=== PATIENT | male | born 2000 | race Caucasian/White ===

== ENCOUNTER 2019-05-11 19:06 | Inpatient (IN) | payer BC, SELFPAY ==
--- NOTE | ~2019-05-11 | CT_ITS ---
EXAMINATION: CT brain wo con DATE: 05/11/2019 20:15 INDICATION: Seizures TECHNIQUE: Computed tomography (CT) of the head was performed without intravenous contrast. The dose- length product was 605.33 mGy-cm. The mA was adjusted according to patient size. Iterative reconstruc tion technique was employed. COMPARISON: None FINDINGS: There are geographic areas of hypodensity of the frontal lobes bilaterally which may be pos ttraumatic or infarction. Mild generalized atrophy. Chronic areas of hypodensity of the posterior par ietal lobes and the left occipital lobe. No ventriculomegaly or midline shift. There is mucosal thick ening of the right frontal and ethmoid sinuses. Mastoids are pneumatized. No depressed skull fracture s. No acute intracranial hemorrhage, infarction, mass or mass effect. IMPRESSION: 1. Geographic areas of hypodensity involving the frontal lobes, posterior parietal lobes and left occ ipital lobe which may reflect posttraumatic change or areas of chronic infarction. Reviewed, dictated and finalized at location A. OR ONLINE MARKETING MANAGER IMPRESSION: 1. Geographic areas of hypodensity involving the frontal lobes, posterior parie marleni lobes and left occipital lobe which may reflect posttraumatic change or are as of chronic infarction.
--- NOTE | ~2019-05-11 | XR_ITS ---
XR chest 2V DATE: 05/12/2019 08:19 INDICATION: Leukocytosis. Seizure. TECHNIQUE: AP and lateral views in wheelchair COMPARISON: None FINDINGS: Normal heart size. No hilar or mediastinal enlargement. No pulmonary infiltrate or consolid ation, pleural effusion or pulmonary vascular congestion or pneumothorax. IMPRESSION: No active cardiopulmonary disease Reviewed, dictated and finalized at location B. CARE AIDE TEACHER
[2019-05-11 19:07] VITALS: BP 162/89; PULSE 110; RESP 18; TEMP 35.7; O2SAT 90
--- NOTE | 2019-05-11 19:15 | ED.SEIZURE ---
HPI - Seizure General Chief Complaint: Seizure Stated Complaint: seizure Time Seen by Provider: 05/11/19 19:12 Source: patient, family (pt's mother), RN notes reviewed and other (pt's friend) Mode of arrival: EMS Limitations: clinical condition History of Present Illness HPI Narrative: Pt is a 19 y/o male with a Hx of TBI, who presents to the ED via EMS with c/o possible seizure happening this evening. According to the pt's mother, he has no Hx of seizures. She notes that the pt has had a recent cough and sinus congestion, and states that he has had intermittent epistaxis over the past week. Pt's friend notes that the pt complained of dizziness earlier today. He states that he then heard a strange sound coming from where the pt was this evening. Pt's friend notes that when he went to check on the pt, he found him contracted in his chair with blood around his mouth. He states that he subsequently laid the pt down on his side. EMS notes that the pt was given 2 mg of Versed while in route to the ED. HPI limited due to pt's clinical condition. MD complaint: possible seizure Witnessed: Yes - by Other (pt's friend) Seizure History: No Place: home Associated symptoms: cough (per mother) and other (dizziness (per friend); epistaxis (per mother); sinus congestion (per mother)) Treatments prior to arrival: benzodiazepines (Versed) Related Data Home Medications Medication Instructions Recorded Confirmed No Home Medications 05/12/19 05/12/19 Allergies Allergy/AdvReac Type Severity Reaction Status Date / Time No Known Allergies Allergy Unverified 10/01/17 10:06 Review of Systems Review of Systems: Narrative: ROS limited due to pt's clinical condition. ENT: Reports epistaxis (per mother) and Reports nasal congestion (per mother) Respiratory: Respiratory: Reports cough (per mother) Neurologic: Reports dizziness (per friend) and Reports seizure-like activity PMF Past Medical History Medical History ADD (attention deficit disorder) TBI (traumatic brain injury) Surgical History Surgical History Hx of craniotomy Social History Social History Smoking status: Never smoker Alcohol intake: never Substance use: never Substance use type: does not use Gender identity (if verbalized by the patient): Male Spiritual care concerns: No Agree to blood products: Yes Course Consultations Consultation #1: Discussed case with neurologist, Dr. Liu. Recommends admission and EEG. He will see the pt in the morning. Date: 05/11/19 Time: 22:17 Consultation #2: Discussed case with hospitalist, Dr. Bingham. Accepted admission. Date: 05/11/19 Time: 22:51 Vital Signs Vital signs: Vital Signs Temperature 35.7 C L 05/11/19 19:07 Pulse Rate 110 H 05/11/19 19:07 Respiratory Rate 18 05/11/19 19:07 Blood Pressure 162/89 H 05/11/19 19:07 Pulse Oximetry 90 05/11/19 19:07 Temperature 36.8 C 05/11/19 23:14 Pulse Rate 105 H 05/12/19 00:05 Respiratory Rate 22 H 05/11/19 23:14 Blood Pressure 126/78 05/11/19 23:14 Pulse Oximetry 100 05/11/19 23:14 MDM - Seizure MDM Narrative Medical decision making narrative: This is a first time seizure likely related to TBI. He had a prolonged post ictal period of about 3 hours. I will plan to admit him For monitoring, EEG, and neurology consult. Differential Diagnosis Differential diagnosis: Likely generalized seizure, new onset seizure, epileptic seizure and status epilepticus Medical Records Attestation: I reviewed the patient's medical records. Lab Data Attestation: I reviewed the patient's lab results. Result diagrams: 05/11/19 19:49 05/11/19 19:49 Labs: Lab Results 05/11/19 05/11/19 05/11/19 Range/Units 19:49 19:49 19:49 WBC 13.8 H (4.5-10.0) K/mm3 RBC 5.07 (4.6-6.20) M/mm
[2019-05-11] MEDS: levETIRAcetam 1000MG/NACL100ML 1,000 MG/100 ML BAG 400 MG IVPB (19:30)
[2019-05-11] MEDS: SODIUM CHLORIDE 0.9% IV 1,000 ML 999 ML IV CONT (19:31)
[2019-05-11 20:02] LABS: Basophils Absolute Auto 0.1 K/mm3 (0.0-0.1); Basophils Percent Auto 0.8 % (0.2-1.2); Eosinophils Absolute Auto 0.2 K/mm3 (0-0.3); Eosinophils Percent Auto 1.4 % (0-4.4); Hematocrit 43.6 % (42.0-52.0); Immature Granulocyte Absolute 1.04 K/mm3 (0.00-0.031); Immature Granulocyte Percent A 7.5 % (0-0.5); Lymphocytes Absolute Auto 4.87 K/mm3 (0.9-3.2); Lymphocytes Percent Auto 35.2 % (18.3-44.2); Mean Corpuscular HGB Conc 32.1 g/dl (32-36); Mean Corpuscular Hemoglobin 27.6 pg (26-34); Mean Platelet Volume 10.6 fl (7.4-10.4); Monocytes Absolute Auto 0.6 K/mm3 (0.1-0.6); Neutrophils Absolute Auto 7.1 K/mm3 (1.3-6.7); Neutrophils Percent Auto 51.1 % (45.5-73.1); Platelet Count Result 402 k/mm3 (150-375); Red Blood Count 5.07 M/mm3 (4.6-6.20); Red Cell Distribution Width 13.5 % (11.5-14.5); White Blood Count 13.8 K/mm3 (4.5-10.0)
[2019-05-11 20:15] LABS: Add Urine Microscopic? YES; Amorphous Sediment Urine Few; Appearance Urine Cloudy (Clear); Bilirubin Urine Negative (Negative); Blood Urine 1+ (Negative); Color Urine Yellow (Yellow); Glucose Urine UA Negative (Negative); Ketones Urine Trace mg/dL (Negative); Leukocyte Esterase Ur Negative LEU/UL (Negative); Mucus Urine Rare /lpf; Nitrate Urine Negative (Negative); Protein Urine 2+ mg/dL (Negative); Specific Grav Ur 1.016 (1.001-1.035); Squamous Epithelial Cell Urine Rare /hpf (Few); Urobilinogen Urine Negative mg/dL (<2.0); WBC Urine 0-3 /hpf
[2019-05-11 20:18] LABS: Magnesium 2.1 mg/dL (1.6-2.3)
[2019-05-11 20:22] LABS: Amphetamine Screen Urine Negative (Negative); Barbiturate Screen Urine Negative (Negative); Benzodiazepines Screen Urine Positive (Negative); Cannabinoid Screen Urine Negative (Negative); Cocaine Screen Urine Negative (Negative); Methadone Screen Urine Negative (Negative); Opiate Screen Urine Negative (Negative); Phencyclidine Screen Urine Negative (Negative)
[2019-05-11 20:35] LABS: Ethanol < 10 mg/dL (<10)
[2019-05-11 20:45] VITALS: BP 130/70; PULSE 97; RESP 19; O2SAT 100; O2SAT 98
[2019-05-11 20:50] LABS: Aspartate Amino Transferase 70 U/L (17-59); Bilirubin,Total 0.4 mg/dL (0.2-1.3); Blood Urea Nitrogen 10 mg/dL (9-20); Calcium 8.8 mg/dL (8.4-10.2); Carbon Dioxide 21 mmol/L (22-30); Chloride 100 mmol/L (98-107); Estimated CRCL calculation 90 ml/min; Estimated Glomerular Filt Rate > 60; Glucose 176 mg/dL (75-110); Potassium 3.8 mmol/L (3.4-5.0); Sodium 142 mmol/L (137-145)
[2019-05-11 20:51] LABS: Alanine Aminotransferase 115 U/L (4-50); Albumin Level 4.3 g/dL (3.5-5.1); Alkaline Phosphatase 91 U/L (38-126)
[2019-05-11 22:08] VITALS: BP 128/86; PULSE 95; RESP 18; O2SAT 100
--- NOTE | 2019-05-11 22:39 | PC.NURSE ---
pt a&ox3 at this time.
[2019-05-11 22:40] VITALS: BP 117/68; PULSE 104; RESP 16; O2SAT 100
[2019-05-11 23:14] VITALS: BP 126/78; PULSE 101; RESP 22; TEMP 36.8; O2SAT 100
[2019-05-11] MEDS: LACTATED RINGERS 1,000 ML 125 ML IV CONT (23:39)
[2019-05-12] VITALS (10 sets, daily range): BP systolic 103–146; BP diastolic 50–89; PULSE 81–117; RESP 18–20; TEMP 36.8–37.3; O2SAT 96–100; BMI 28.6
--- NOTE | 2019-05-12 00:38 | ADMGEN ---
This patient, Dustin Hull, was admitted to Medical Room 246-01. Patient/family oriented to hospital policies and general routines including ID bracelet, bed and alarms, visiting hours, pain management, procedures, bathroom and other care routines, personal items, smoking policy, room service/diet, and visiting hours. Valuables list has been completed. Information on how to activate the Rapid Response Team has been discussed. Patient/Family are encouraged to report perceived risks to care and to ask questions if they do not understand what they are told or what they should do.
--- NOTE | 2019-05-12 04:26 | PM.IMHP ---
H&P: HPI History of Present Illness Chief complaint: seizure with prolonged post ictal period Narrative: This is a 19 year old male with known history of traumatic brain injury who is not known to have a seizure disorder who yesterday appeared to have a seizure with a prolonged postictal period. The patient's caregiver, who is his nephew was with him and was upstairs when he heard the patient was making a strange noise. He went downstairs and the patient appeared to be choking on something. The nephew witnessed the patient shaking and contracted with blood coming out of his mouth and nose. Its unknown if the patient lost urine during his seizure. EMS gave the patient 2 mg of Versed while in route to the ED. On arrival to the ER the patient was loaded with IV keppra. He had a prolonged postictal period of 1.[address] brain was obtained and unremarkable for acute pathology. Neurology was consulted by ER provider and has asked that we admit the patient and they will evalute him in the morning. On my encounter with the pateint he has no complaints. The patient is not on any home medictions. Denies any headache, fevers, neck stiffness, chest pain, shortness of breath, abdominal pain, dysuria, diarrhea or other symptoms. He has never had a seizure before. On further review of his history his mother tells me that his traumatic brain injury was over 10 years ago. He is also known to have an intention tremor. No other complaints. Review of Systems Review of Systems: All systems reviewed & are unremarkable except as noted in HPI and below PMFSH Past Medical History Medical History ADD (attention deficit disorder) TBI (traumatic brain injury) Surgical History Surgical History Hx of craniotomy Social History Social History Smoking status: Never smoker Alcohol intake: never Substance use: never Substance use type: does not use Gender identity (if verbalized by the patient): Male Spiritual care concerns: No Agree to blood products: Yes Meds Home Medications and Allergies Home Medications Medication Instructions Recorded Confirmed Type No Home Medications 05/12/19 05/12/19 History Allergies Allergy/AdvReac Type Severity Reaction Status Date / Time No Known Allergies Allergy Unverified 10/01/17 10:06 Vital Signs Vital Signs - 24 hr 05/11/19 19:07 05/11/19 20:45 05/11/19 22:08 Temperature 35.7 C L Pulse Rate 110 H 97 95 Respiratory Rate 18 19 18 Blood Pressure 162/89 H 130/70 128/86 Pulse Oximetry 90 98 100 05/11/19 22:40 05/11/19 23:14 05/12/19 00:05 Temperature 36.8 C Pulse Rate 104 H 101 H 105 H Respiratory Rate 16 22 H Blood Pressure 117/68 126/78 Pulse Oximetry 100 100 Exam Const: General: cooperative, no acute distress, alert and awake Nutritional Appearance: well nourished Orientation/consciousness: patient oriented x3 HENMT: Head: normal to inspection General nose exam: Normal external nose present Face and sinus: normal facial exam Mouth: No tongue normal (small laceration noted on left side of tongue++) Eyes: Pupils: Equal, round and reactive pupils present EOM: EOMs intact bilaterally Neck: Neck: supple and no JVD Thyroid: thyroid normal Lymphatic: lymphadenopathy not noted Resp: Effort & Inspection: normal respiratory effort Auscultation: clear to auscultation bilaterally Cardio: Rate: regular rate Rhythm: regular rhythm Heart sounds: no murmurs GI: Inspection: normal to inspection Auscultation: normal bowel sounds Skin: General skin exam: normal color and no rashes or lesions noted Neuro: General: patient oriented x3 Cranial nerves: Yes CN's II-XII intact bilaterally and Yes Equal, round and reactive pupils present Speech: normal speech Motor exam (neuro): 5/5 motor strength prese
[2019-05-12 05:46] LABS: Alanine Aminotransferase 112 U/L (4-50); Albumin Level 3.7 g/dL (3.5-5.1); Alkaline Phosphatase 82 U/L (38-126); Aspartate Amino Transferase 60 U/L (17-59); Bilirubin,Total 0.8 mg/dL (0.2-1.3); Blood Urea Nitrogen 8 mg/dL (9-20); Calcium 8.7 mg/dL (8.4-10.2); Carbon Dioxide 23 mmol/L (22-30); Chloride 102 mmol/L (98-107); Estimated CRCL calculation 115 ml/min; Estimated Glomerular Filt Rate > 60; Glucose 89 mg/dL (75-110); Potassium 3.5 mmol/L (3.4-5.0); Sodium 139 mmol/L (137-145)
[2019-05-12 06:11] LABS: Basophils Absolute Auto 0.1 K/mm3 (0.0-0.1); Basophils Percent Auto 0.3 % (0.2-1.2); Eosinophils Percent Auto 0.1 % (0-4.4); Hematocrit 39.4 % (42.0-52.0); Hemoglobin 13.1 g/dL (14.0-18.0); Immature Granulocyte Percent A 1.1 % (0-0.5); Lymphocytes Absolute Auto 2.87 K/mm3 (0.9-3.2); Lymphocytes Percent Auto 15.5 % (18.3-44.2); Mean Corpuscular HGB Conc 33.2 g/dl (32-36); Mean Corpuscular Volume 84.2 fl (80-100); Mean Platelet Volume 10.6 fl (7.4-10.4); Monocytes Absolute Auto 1.4 K/mm3 (0.1-0.6); Monocytes Percent Auto 7.7 % (2.6-8.5); Neutrophils Absolute Auto 13.9 K/mm3 (1.3-6.7); Neutrophils Percent Auto 75.3 % (45.5-73.1); Platelet Count Result 346 k/mm3 (150-375); Red Blood Count 4.68 M/mm3 (4.6-6.20); Red Cell Distribution Width 13.3 % (11.5-14.5); White Blood Count 18.5 K/mm3 (4.5-10.0)
[2019-05-12 06:45] LABS: Hemoglobin A1C 5.3 % (<5.7)
--- NOTE | 2019-05-12 07:00 | NEURO_ITS ---
TEST: ELECTROENCEPHALOGRAM DIAGNOSIS: ENCEPHALOPATHY PATIENT NUMBER: [id number] EEG NUMBER: [id number] RECORDING DATE: 05/12/19 CLINICAL HISTORY: Patient mother brought him into ER for seizure like activity. Says he was unresponsive and eyes were rolled up. CONDITION OF RECORDING: Awake EEG DESCRIPTION: The whole record consists of diffused low voltage beta activity mixed with multiple movement and muscle artifacts. There was no change in background rhythms throughout the tracing. During drowsiness low voltage beta activity is seen diffusely mixed with waxing and waning posterior alpha rhythms. Nonparoxysmal. Nonfocal. Nonlateralizing. IMPRESSION: No significant abnormalities noted. [facility]
[2019-05-12] MEDS: LACTATED RINGERS 1,000 ML 125 ML IV CONT (08:09)
[2019-05-12] MEDS: levETIRAcetam 1000MG/NACL100ML 1,000 MG/100 ML BAG 400 MG IVPB ×2 (08:10→21:54)
--- NOTE | 2019-05-12 12:09 | CONS_ITS ---
DATE OF CONSULTATION: 05/11/2019 HISTORY: A 19-year-old right-handed male, presented to the hospital with the information that yesterday appeared to have a seizure with prolonged postictal period. The patient's caregiver was with him, was up stair when he heard the patient was making a strange noise. He went downstairs and the patient appeared to be choking on something. The nephew with the zipper machine operator as well, witnessed the patient shaking and noted the blood coming out of his mouth and nose. It was not sure whether he became incontinent of urine during the seizure. EMS was called to the scene, who gave the patient 2 mg of Versed while en route to the emergency department. In the emergency room, he was loaded with IV Keppra. He was noted to have prolonged postictal period of 1.[address] scan of the brain was obtained, which was negative for any acute problem. He was admitted to the hospital because he never had the seizure. He had no complaint on initial encounter by the hospital. He gave no history of headache, fever, neck stiffness, or any other complaints. The patient does have a history of traumatic brain injury, but never had the seizure before. PAST MEDICAL HISTORY: Consistent with ADD, TBI, craniotomy. SOCIAL HISTORY: No smoking, no drinking. MEDICATIONS: No home medication. ALLERGIES: NO ALLERGIES. PHYSICAL EXAMINATION: VITAL SIGNS: On initial evaluation, he was afebrile with pulse of 110, respiration 18, blood pressure 162/89. GENERAL: Examination revealed him to be awake, alert, cooperative, in no obvious acute distress. HEENT: Head normocephalic with no cranial bruit. Ear, nose, throat examination normal. He was noted to have a small laceration on the left side of his tongue. At this time, it was not bleeding. NECK: Supple with no cervical bruit. HEART: Regular with no murmur. LUNGS: Clear to auscultation with no rhonchi or crepitation. ABDOMEN: Soft with no organomegaly. NEUROLOGICAL: He was awake, alert, was able to carry on the conversation with the physician at this time. His speech was rather dysarthric and slightly immature. Mother was at the bedside, who gave all the other information. Pupils were round regular. [place] of vision full. Extraocular movements full. Face was symmetrical. Tongue was midline. Motor examination revealed him to have no drift of one side or other side. Tone normal. Reflexes symmetrical. Plantars downgoing. There was no evidence of sensory or cerebellar deficit. LABORATORY DATA: Evaluation up until now includes the CBC with leukocytosis that is WBC 18.5, hemoglobin 13.1, platelet count 402, BUN 8, glucose 176, AST 70 and urine cloudy, 2+ protein. Toxicology screen only positive for benzodiazepine. The patient had the head CT scan in the emergency room as mentioned before. There was hypodensity involving the frontal lobe, posterior parietal lobes and the left occipital lobe as well. IMPRESSION: Traumatic brain injury with history of the first seizure. PLAN: Is to continue him on the Keppra, which has been started in the emergency room and further care accordingly in addition to obtaining the EEG. CHRISTIANO BOWEN M.D. PUTTYING AND CALKING SUPERVISOR PUTTYING AND CALKING SUPERVISOR D I MT: De
[2019-05-12] MEDS: FLUTICASONE PROPIONATE 0.05% NA SPR 16 GM BTL (*BKC) 2 SPRAY NASAL (13:22)
--- NOTE | 2019-05-12 15:11 | PM.IMPN ---
Progress Note: A&P Assessment and Plan (1) New onset seizure: Code(s): R56.9 - Unspecified convulsions Status: Acute Assessment and Plan: Patient with new onset seizure. He had a prolonged seizure. His brain CT showing chronic findings but no acute findings. He has been started on IV Keppra. Neurology has been consulted by ER provider. Appreciate Neurology recommendations. EEG has been ordered. Continue seizure precautions. Discussed with mother in the room. All questions were answered. (2) TBI (traumatic brain injury): Qualifiers: Encounter type: sequela Code(s): S06.9X9A - Unspecified intracranial injury with loss of consciousness of unspecified duration, initial encounter Status: Chronic Assessment and Plan: Resulting in cognitive disability. Patient back to baseline. Increase activity as tolerated. (3) Transaminitis: Code(s): R74.0 - Nonspecific elevation of levels of transaminase and lactic acid dehydrogenase [LDH] Status: Acute Assessment and Plan: Patient takes no home medications. AST and ALT levels are trending downward. Possibly related to the prolonged seizure. Will check for hepatitis. No abdominal pain or GI symptoms to suggest biliary disease. Continue to follow. (4) Abnormal glucose: Code(s): R73.09 - Other abnormal glucose Status: Acute Assessment and Plan: Glucose 176 on admission. A1c 5.3. Repeat glucose normal. Suspect related to the seizure. Monitor periodically. (5) Leukocytosis: Qualifiers: Leukocytosis type: unspecified Qualified Code(s): D72.829 - Elevated white blood cell count, unspecified Code(s): D72.829 - Elevated white blood cell count, unspecified Status: Acute Assessment and Plan: Elevated WBC at 14K on admission. [place] initially related to the seizures but white count today is 18K. UA not consistent with UTI. Chest x-ray ordered this shows clear lung frye. No fevers to suggest occult infection. Will continue to monitor for now. Subjective Date/time seen: 05/12/19 15:11 Interval history: 19yo male with hx of TBI here for new onset seizure. Assuming care. Chart reviewed. Feels better. Eating normally. Having headache today. No n/v. Walking to the bathroom. Mother in the room and feels patient is back to his baseline. Exam Narrative: Exam Narrative: Gen - NARD Chest - CTA bilat, nml RR CV - RRR S1/S2, Tele showing occas sinus tach Abd - soft, NT,ND, +BS Ext - no pedal edema Neuro - alert and appropriate. cognitively slow with altered speech that can be comprehended. Skin - warm and dry Objective Data Vital Signs Vital Signs: Vital Signs - 24 hr 05/11/19 19:07 05/11/19 20:45 05/11/19 22:08 Temperature 96.3 F L Pulse Rate 110 H 97 95 Respiratory Rate 18 19 18 Blood Pressure 162/89 H 130/70 128/86 Pulse Oximetry 90 98 100 05/11/19 22:40 05/11/19 23:14 05/12/19 00:05 Temperature 98.2 F Pulse Rate 104 H 101 H 105 H Respiratory Rate 16 22 H Blood Pressure 117/68 126/78 Pulse Oximetry 100 100 05/12/19 02:10 05/12/19 04:00 05/12/19 06:00 Temperature 98.9 F 98.2 F Pulse Rate 117 H 115 H 112 H Respiratory Rate 20 20 Blood Pressure 146/89 H 113/55 L Pulse Oximetry 98 98 Intake/Output Intake/Output: Intake & Output 05/09/19 05/10/19 05/11/19 05/12/19 23:59 23:59 23:59 23:59 Intake Total 1100 1520 Output Total 500 Balance 1100 1020 Meds/Results Medications: Active Medications Generic Name Dose Route Start Last Admin Trade Name Freq PRN Reason Stop Dose Admin Acetaminophen 650 mg 05/12/19 12:17 Tylenol Tablet PO Q6H PRN Mild Pain (1-3) or Fever Fluticasone Propionate 2 spray 05/12/19 09:00 05/12/19 13:22 Flonase 0.05% Nasal [place] NASAL 2 spray QAM TUNDE Administration Lactated Ringer's 1,000 mls @ 125 mls/hr 05/11/19 22:55 05/12/19 08:09 Lr
[2019-05-13] VITALS: PULSE 81
[2019-05-13 04:00] VITALS: PULSE 65
[2019-05-13 07:50] VITALS: BP 125/62; PULSE 87; RESP 20; TEMP 36.8; O2SAT 98
[2019-05-13 08:00] VITALS: PULSE 80
[2019-05-13] MEDS: levETIRAcetam 1000MG/NACL100ML 1,000 MG/100 ML BAG 400 MG IVPB (08:21)
[2019-05-13] MEDS: FLUTICASONE PROPIONATE 0.05% NA SPR 16 GM BTL (*BKC) 2 SPRAY NASAL (08:22)
[2019-05-13 09:32] LABS: Hematocrit 47.1 % (42.0-52.0); Mean Corpuscular HGB Conc 29.7 g/dl (32-36); Mean Corpuscular Hemoglobin 28.2 pg (26-34); Mean Corpuscular Volume 94.8 fl (80-100); Mean Platelet Volume 10.9 fl (7.4-10.4); Platelet Count Result 254 k/mm3 (150-375); Red Blood Count 4.97 M/mm3 (4.6-6.20); White Blood Count 8.7 K/mm3 (4.5-10.0)
[2019-05-13 09:42] LABS: Alanine Aminotransferase 104 U/L (4-50); Albumin Level 3.8 g/dL (3.5-5.1); Alkaline Phosphatase 75 U/L (38-126); Aspartate Amino Transferase 64 U/L (17-59); Bilirubin,Total 0.6 mg/dL (0.2-1.3); Blood Urea Nitrogen 6 mg/dL (9-20); Calcium 8.8 mg/dL (8.4-10.2); Carbon Dioxide 20 mmol/L (22-30); Chloride 107 mmol/L (98-107); Estimated CRCL calculation 115 ml/min; Estimated Glomerular Filt Rate > 60; Glucose 104 mg/dL (75-110); Potassium 3.9 mmol/L (3.4-5.0); Sodium 140 mmol/L (137-145)
[2019-05-13 10:46] LABS: Hepatitis C Virus Antibody Negative (Negative)
--- NOTE | 2019-05-13 11:08 | WPDNEUROPN ---
Progress Note: A&P Assessment and Plan (1) TBI (traumatic brain injury): Qualifiers: Encounter type: sequela Code(s): S06.9X9A - Unspecified intracranial injury with loss of consciousness of unspecified duration, initial encounter Status: Chronic (2) New onset seizure: Code(s): R56.9 - Unspecified convulsions Status: Acute Additional Plan stable with no seizure recurrence Review of Systems Review of Systems: All systems reviewed & are unremarkable except as noted in HPI and below Exam Const: General: cooperative, comfortable and no acute distress Nutritional Appearance: average body habitus Orientation/consciousness: oriented to person and oriented to place Limitations: no limitations (brain dysfunction) HENMT: Head: normocephalic Eyes: General: appearance normal, both eyes and all related structures Alignment and Position: alignment normal Periorbital: periorbital findings normal Eyelids: eyelids normal Conjunctivae: conjunctivae normal Sclera: sclerae normal Cornea: corneas normal Pupils: Equal, round and reactive pupils present EOM: EOMs intact bilaterally Direct Ophthalmoscopy: normal light reflex Neck: Neck: no lymphadenopathy Resp: Effort & Inspection: normal respiratory effort and able to speak in complete sentences Auscultation: clear to auscultation bilaterally Cardio: Rate: regular rate Rhythm: regular rhythm Skin: General skin exam: no rashes or lesions noted Neuro: General: oriented to person, oriented to place, moves all extremities and CN's II-XI intact bilaterally Cranial nerves: Yes Bilaterally intact EOM present, Yes Nystagmus not present, Yes Normal facial strength present, Yes Midline tongue present, Yes Symmetric palate elevation present and Yes Normal hearing present Speech: normal speech (abnormal) Plantar Reflex Responses: downgoing: bilateral Psych: Appearance: grossly normal Objective Data Vital Signs Vital Signs: Vital Signs - 24 hr 05/12/19 12:00 05/12/19 14:00 05/12/19 16:00 Temperature 37.1 C Pulse Rate 95 102 H 100 Respiratory Rate 20 Blood Pressure 121/67 Pulse Oximetry 100 05/12/19 20:00 05/12/19 22:00 05/13/19 00:00 Temperature 37.3 C Pulse Rate 98 81 81 Respiratory Rate 18 Blood Pressure 103/50 L Pulse Oximetry 96 05/13/19 04:00 05/13/19 07:50 05/13/19 08:00 Temperature 36.8 C Pulse Rate 65 87 80 Respiratory Rate 20 Blood Pressure 125/62 Pulse Oximetry 98 Intake/Output Intake/Output: Intake & Output 05/10/19 05/11/19 05/12/19 05/13/19 23:59 23:59 23:59 23:59 Intake Total 1100 2980 1060 Output Total 500 800 Balance 1100 2480 260 Meds/Results Medications: Active Medications Generic Name Dose Route Start Last Admin Trade Name Freq PRN Reason Stop Dose Admin Acetaminophen 650 mg 05/12/19 12:17 Tylenol Tablet PO Q6H PRN Mild Pain (1-3) or Fever Docusate Sodium 100 mg 05/13/19 08:42 Colace Capsule PO Q12H PRN Constipation Fluticasone Propionate 2 spray 05/12/19 09:00 05/13/19 08:22 Flonase 0.05% Nasal [place] NASAL 2 spray QAM TUNDE Administration Levetiracetam 1,000 mg in 100 mls @ 400 mls/hr 05/12/19 09:00 05/13/19 08:36 Keppra Iv IVPB Infused Q12HR TUNDE Infusion Radiology Results: ITS Impressions Head CT 05/11/19 20:23 IMPRESSION: 1. Geographic areas of hypodensity involving the frontal lobes, posterior parietal lobes and left occipital lobe which may reflect posttraumatic change or areas of chronic infarction. Chest X-Ray 05/12/19 08:20 IMPRESSION: No active cardiopulmonary disease Labs Labs: Laboratory Results - last 24 hr 05/12/19 05/13/19 05/13/19 05:00 09:23 09:23 WBC 8.7 RBC 4.97 Hgb 14.0 Hct 47.1 MCV 94.8 D MCH 28.2 MCHC 29.7 L RDW 14.0 Plt Count 254 MPV 10.9 H Sodium 140 Potassium 3.9 Chloride 107 Carbon Dioxide 20 L
[2019-05-13 11:33] LABS: Hepatitis B Surface Antigen Negative (Negative)
[2019-05-13 11:40] LABS: HAV RESULT Negative (Negative); Hepatitis B Core IgM Result Negative (Negative)
[2019-05-13 12:00] VITALS: PULSE 77
[2019-05-13] MEDS: DOCUSATE SODIUM 100 MG CAPSULE PO (12:40)
[2019-05-13 14:00] VITALS: BP 110/70; PULSE 78; RESP 16; TEMP 36.8; O2SAT 98
--- NOTE | 2019-05-13 15:06 | PM.DS ---
DS: Diagnosis Admitting Diagnosis Admitting Diagnosis: Unspecified convulsions Discharge Diagnosis (1) New onset seizure: Code(s): R56.9 - Unspecified convulsions Status: Acute Assessment and Plan: Patient with new onset seizure. He had a prolonged seizure. Possibly related to the TBI. His brain CT showing chronic findings but no acute findings. He was started on IV Keppra. Neurology has been consulted by ER provider. Appreciate Neurology recommendations. EEG showing no significant abnormalities. Patient was admitted and started on seizure precautions. Discussed with mother at various times during the hospital course. (2) TBI (traumatic brain injury): Qualifiers: Encounter type: sequela Code(s): S06.9X9A - Unspecified intracranial injury with loss of consciousness of unspecified duration, initial encounter Status: Chronic Assessment and Plan: Resulting in cognitive disability. Patient back to baseline per family. (3) Transaminitis: Code(s): R74.0 - Nonspecific elevation of levels of transaminase and lactic acid dehydrogenase [LDH] Status: Acute Assessment and Plan: Patient takes no home medications. AST and ALT levels were elevated on admission to 70 and 115 respectfully. Hepatitis panel negative. Levels trended downward to 644 respectfully today. Possibly related to the prolonged seizure. No abdominal pain to suggest biliary disease. Will repeat as outpatient. (4) Abnormal glucose: Code(s): R73.09 - Other abnormal glucose Status: Acute Assessment and Plan: Glucose 176 on admission. A1c 5.3. Repeat glucose normal. Suspect related to the seizure. (5) Leukocytosis: Qualifiers: Leukocytosis type: unspecified Qualified Code(s): D72.829 - Elevated white blood cell count, unspecified Code(s): D72.829 - Elevated white blood cell count, unspecified Status: Acute Assessment and Plan: Elevated WBC on admission that climbed to 18K. [place] related to the seizures. UA not consistent with UTI. Chest x-ray showing clear lung frye. No fevers to suggest occult infection. WBC normallized. DS: Summary Hospital Course Reason for hospitalization: 19yo male here for new onset seizures. Please see H&P for details. Hospital Course: As above. Time Spent with Patient Time attestation: Total time spent providing and/or coordinating discharge services:34 minutes Time spent: Greater than 30 minutes Specific discharge activities: Discussed with Neurology. Discussed with patient's mother. Exam Narrative: Exam Narrative: Gen - NARD Chest - CTA bilat, nml RR CV - RRR S1/S2, Tele showing occas sinus tach Abd -soft. Nontender. Nondistended. No right upper quadrant tenderness. Positive bowel sounds. Ext - no pedal edema Neuro - alert and appropriate. cognitively slow with mild dysarthria Skin - warm and dry DS: Data Data Completed and Pending Labs on day of discharge: Labs from last 24 hours 05/13/19 05/13/19 05/12/19 09:23 09:23 05:00 WBC 8.7 RBC 4.97 Hgb 14.0 Hct 47.1 MCV 94.8 D MCH 28.2 MCHC 29.7 L RDW 14.0 Plt Count 254 MPV 10.9 H Sodium 140 Potassium 3.9 Chloride 107 Carbon Dioxide 20 L BUN 6 L Creatinine 0.80 Estim Creat Clear Calc 115 Estimated GFR > 60 Glucose 104 Calcium 8.8 Total Bilirubin 0.6 AST 64 H ALT 104 H Alkaline Phosphatase 75 Total Protein 7.0 Albumin 3.8 Hepatitis A IgM Ab Negative Hep Bs Antigen Negative Hep B Core IgM Ab Negative Hepatitis C Ab Screen Negative Discharge Plan Discharge Attending physician on discharge: Martin Doe Consulting providers: Bro Liu ; Martin Doe Discharging Clinician: Martin Doe Anticipated Discharge Date/Time: 05/13/19 16:00 Patient Disposition: Home, Self-Care Activity: as to
== END 2019-05-13 16:49 | disposition home or self-care (01) | DRG 53 ==
LOC: ANHED 19:21 → ANH2MED 23:00
PROVIDERS: Admitting Provider Family Medicine; Emergency Provider Emergency Medicine; PCP Pediatrics; Visit Provider Internal Medicine
DX: R56.9 Unspecified convulsions (principal); F98.8 Other specified behavioral and emotional disorders with onset usually occurring in childhood and adolescence; S06.9X9S Unspecified intracranial injury with loss of consciousness of unspecified duration, sequela; R47.1 Dysarthria and anarthria; F09 Unspecified mental disorder due to known physiological condition; R73.09 Other abnormal glucose
CPT/HCPCS: 36415; 51701; 70450; 71046; 80053; 80074; 80307; 81001; 83036; 83735; 84100; 85025; 85027; 95816; 96361; 96374; 99285; A9270; J1953; J7030; J7120

== ENCOUNTER 2019-07-21 13:19 | Observation (INO) | payer BC, SELFPAY ==
[2019-07-21] VITALS (14 sets, daily range): BP systolic 109–154; BP diastolic 47–87; PULSE 93–116; RESP 14–22; TEMP 36.5–37; O2SAT 97–100
--- NOTE | ~2019-07-21 | XR_ITS ---
EXAMINATION: XR chest 1V portable 07/21/2019 13:51 INDICATION: Seizures PROCEDURE: AP portable chest COMPARISON: 05/12/2019 FINDINGS: The lungs are clear. The cardiomediastinal silhouette is within normal limits. There are no pleural effusions. There is no pneumothorax suspected. IMPRESSION: 1: NO ACUTE CARDIOPULMONARY DISEASE. Reviewed, dictated and finalized at location A.
[2019-07-21] MEDS: levETIRAcetam 1000MG/NACL100ML 1,000 MG/100 ML BAG 400 MG IVPB (13:35)
--- NOTE | 2019-07-21 13:46 | PC.NURSE ---
This RN and Bart RN in room with patient, notice seizure like activity. EDP was called and gave verbal order for 1mg Ativan IV push, medication pulled from pixis. EDP at bedside, seizure subsided, EDP have verbal order to hold IV Ativan at this time.
[2019-07-21 13:54] LABS: Glucose Point of Care 164 (65-105)
[2019-07-21 14:06] LABS: Add Urine Microscopic? YES; Appearance Urine Clear (Clear); Bacteria Urine 1+ /hpf; Bilirubin Urine Negative (Negative); Blood Urine 1+ (Negative); Color Urine Yellow (Yellow); Glucose Urine UA Negative (Negative); Ketones Urine Negative (Negative); Leukocyte Esterase Ur Negative LEU/UL (Negative); Mucus Urine Rare /lpf; Nitrate Urine Negative (Negative); Protein Urine 3+ mg/dL (Negative); Specific Grav Ur 1.018 (1.001-1.035); Squamous Epithelial Cell Urine Rare /hpf (Few); Urobilinogen Urine Negative mg/dL (<2.0)
--- NOTE | 2019-07-21 14:11 | PC.NURSE ---
On arrival to ED, patient only had one shoe on, two socks, jeans and a shirt. This RN asked EMS if they had another shoe with them and they state We didn't notice that, I guess he only has one.
[2019-07-21 14:14] LABS: Basophils Absolute Auto 0.2 K/mm3 (0.0-0.1); Basophils Percent Auto 0.8 % (0.2-1.2); Eosinophils Absolute Auto 0.4 K/mm3 (0-0.3); Eosinophils Percent Auto 1.9 % (0-4.4); Hematocrit 49.5 % (42.0-52.0); Immature Granulocyte Absolute 0.46 K/mm3 (0.00-0.031); Immature Granulocyte Percent A 2.3 % (0-0.5); Lymphocytes Absolute Auto 5.53 K/mm3 (0.9-3.2); Lymphocytes Percent Auto 27.8 % (18.3-44.2); Mean Corpuscular HGB Conc 32.3 g/dl (32-36); Mean Corpuscular Hemoglobin 27.9 pg (26-34); Mean Corpuscular Volume 86.2 fl (80-100); Mean Platelet Volume 10.7 fl (7.4-10.4); Monocytes Percent Auto 5.2 % (2.6-8.5); Neutrophils Absolute Auto 12.4 K/mm3 (1.3-6.7); Platelet Count Result 393 k/mm3 (150-375); Red Blood Count 5.74 M/mm3 (4.6-6.20); Red Cell Distribution Width 13.8 % (11.5-14.5); White Blood Count 19.9 K/mm3 (4.5-10.0)
[2019-07-21 14:21] LABS: Amphetamine Screen Urine Negative (Negative); Barbiturate Screen Urine Negative (Negative); Benzodiazepines Screen Urine Negative (Negative); Cannabinoid Screen Urine Negative (Negative); Cocaine Screen Urine Negative (Negative); Methadone Screen Urine Negative (Negative); Opiate Screen Urine Negative (Negative); Phencyclidine Screen Urine Negative (Negative)
[2019-07-21 14:25] LABS: Blood Urea Nitrogen 11 mg/dL (9-20); Calcium 9.6 mg/dL (8.4-10.2); Carbon Dioxide 17 mmol/L (22-30); Chloride 104 mmol/L (98-107); Estimated Glomerular Filt Rate > 60; Glucose 226 mg/dL (75-110); Potassium 3.8 mmol/L (3.4-5.0); Sodium 139 mmol/L (137-145)
--- NOTE | 2019-07-21 15:10 | ED.SEIZURE ---
HPI - Seizure General Chief Complaint: Seizure Stated Complaint: SZ Time Seen by Provider: 07/21/19 13:21 History of Present Illness HPI Narrative: Patient is a 19-year-old male who presents the ER with seizure. He has been out of his Keppra for the last week. He takes 750 mg twice a day. Patient has history of TBI and is able to perform ADLs but essentially has a mental age of at 6-year-old according to a family member. Patient has had no recent prodrome of infectious symptoms. Patient was watching cartoons on his tablet when he began having a seizure. Patient seized for EMS and they gave him 5 mg of Valium. Seizure History: Yes Related Data Allergies Allergy/AdvReac Type Severity Reaction Status Date / Time No Known Allergies Allergy Verified 07/21/19 13:38 Review of Systems Review of Systems: ROS unobtainable: Yes unobtainable due to medical condition PMFSH Social History Social History Smoking status: Never smoker Alcohol intake: never Substance use: never Substance use type: does not use Gender identity (if verbalized by the patient): Male Spiritual care concerns: No Agree to blood products: Yes Exam Narrative: Exam Narrative: GENERAL: Ill-appearing, well-nourished, and postictal. HEAD: Normocephalic, atraumatic. EYES: PERRLA and EOMI. ENT: Mucous membranes moist. Nasal trumpet right naris CHEST: Clear to auscultation with some referred upper airway noises from snoring. No respiratory distress. HEART: Regular rate and rhythm. Normal peripheral pulses. ABDOMEN: Soft, nontender, nondistended. EXTREMITIES: No deformity, decent strength when responding to noxious stimuli. No edema. SKIN: Warm, dry, no rash. NEURO: Sleeping and postictal. Moves all extremities. No facial droop. Course Course Emergency Course: Admit to hospitalist service for observation. Patient received IV Keppra. Immediately after receiving the Keppra he had a brief less than 1 minute seizure that required no additional intervention. He has been resting comfortably and we have been weaning the oxygen. No pneumonia on chest x-ray. Leukocytosis felt to be reactive to seizure activity. Dr. Liu has been in contact with the ER about caring for the patient. Vital Signs Vital signs: Vital Signs Temperature 98.6 F 07/21/19 13:20 Pulse Rate 111 H 07/21/19 13:20 Respiratory Rate 22 H 07/21/19 13:20 Blood Pressure 154/47 H 07/21/19 13:20 Pulse Oximetry 99 07/21/19 13:20 Temperature 98.6 F 07/21/19 13:20 Pulse Rate 94 07/21/19 16:08 Respiratory Rate 19 07/21/19 16:08 Blood Pressure 130/79 07/21/19 16:08 Pulse Oximetry 98 07/21/19 16:12 MDM - Seizure Lab Data Result diagrams: 07/21/19 14:08 07/21/19 14:08 Labs: Lab Results 07/21/19 07/21/19 07/21/19 Range/Units 13:22 13:55 13:55 WBC (4.5-10.0) K/mm3 RBC (4.6-6.20) M/mm3 Hgb (14.0-18.0) g/dL Hct (42.0-52.0) % MCV (80-100) fl MCH (26-34) pg MCHC (32-36) g/dl RDW (11.5-14.5) % Plt Count (150-375) k/mm3 MPV (7.4-10.4) fl Immature Gran % (Auto) (0-0.5) % Neut % (Auto) (45.5-73.1) % Lymph % (Auto) (18.3-44.2) % [place] % (Auto) (2.6-8.5) % Eos % (Auto) (0-4.4) % Baso % (Auto) (0.2-1.2) % Lymph # (Auto) (0.9-3.2) K/mm3 [place] # (Auto) (0.1-0.6) K/mm3 Eos # (Auto) (0-0.3) K/mm3 Baso # (Auto) (0.0-0.1) K/mm3 Abs Immat Gran (auto) (0.00-0.031) K/mm3 Absolute Neuts (auto) (1.3-6.7) K/mm3 Absolute Nucleated RBC (0.0-0.012) K/mm3 Nucleated RBC % (0.0-0.2) % Sodium (137-145) mmol/L Potassium (3.4-5.0) mmol/L Chloride (98-107) mmol/L Carbon Dioxide (22-30) mmol/L BUN (9-20) mg/dL Creatinine (0.7-1.3) mg/dL Estim Creat Clear Calc Estimated GFR (59 - ) Glucose (75-110) mg/dL POC Capillary Glucose 164 H
--- NOTE | 2019-07-21 16:43 | PC.NURSE ---
This patient, Dustin Hull, was admitted to Medical Room 243-01. Patient/family oriented to hospital policies and general routines including ID bracelet, bed and alarms, visiting hours, pain management, procedures, bathroom and other care routines, personal items, smoking policy, room service/diet, and visiting hours. Valuables list has been completed. Information on how to activate the Rapid Response Team has been discussed. Patient/Family are encouraged to report perceived risks to care and to ask questions if they do not understand what they are told or what they should do.
--- NOTE | 2019-07-21 17:13 | PM.IMHP ---
H&P: HPI History of Present Illness Chief complaint: seizure Narrative: Dustin Hull is a 19 year old male who has a past medical history of having seizure disorder. He has a history of traumatic brain injury. The patient presented to the emergency room today with a seizure. The patient was out of his Keppra for the last week. He was taking Keppra 750 mg twice a day. He has the mental capacity of a 3rd grader I was told. Patient had no recent infectious symptoms. The patient will watching cartoons on a salad we began have a seizure. He sees for AMS and then they gave him 5 mg of Valium. Patient was given IV Keppra. After receiving the Keppra the patient had a brief less than 1 minute seizure. Patient is now on a postictal state. No pneumonia on the chest x-ray. Leukocytosis felt to be reactive to seizure activity. Dr. Kelsey has been consulted. Patient will be placed on IV Keppra. Information was received and reviewed from his last admission April of this year we had a prolonged postictal period. Date of service 07/21/2019 unable to retrieve information from the patient. Unable to extract family history from last admission. Review of Systems Review of Systems: All systems reviewed & are unremarkable except as noted in HPI and below Constitutional: Constitutional: Reports as per HPI and Reports no additional constitutional complaints Eyes: Eyes: Reports as per HPI and Reports no additional eye complaints ENT: Reports system reviewed and no additional complaints, except as documented and Reports Normal hearing present Cardiovascular: Cardiovascular: Reports no additional cardiovascular complaints Respiratory: Respiratory: Reports no additional respiratory complaints and Reports no additional respiratory complaints Gastrointestinal: Gastrointestinal: Reports as per HPI and Reports no additional gastrointestinal complaints Musculoskeletal: Musculoskeletal: Reports no additional musculoskeletal complaints Integumentary/Breasts: Skin/Breast: Reports system reviewed and no additional complaints, except as docu and Reports as per HPI Neurologic: Reports system reviewed and no additional complaints, except as documented, Reports as per HPI and Reports Normal hearing present Psychiatric: Psychiatric: Reports no additional psychiatric complaints and Reports as per HPI Endocrine: Endocrine: Reports no additional endocrine complaints Hematologic/Lymphatic: Hematologic/Lymphatic: Reports no additional hematologic/lymphatic complaints Allergic/Immunologic: Allergic/Immunologic: Reports no additional allergic/immunologic complaints PMFSH Past Medical History Medical History ADD (attention deficit disorder) TBI (traumatic brain injury) Surgical History Surgical History Hx of craniotomy Family History Family History (Updated 07/21/19 @ 17:18 by Debbie León NP) Unknown Family history unknown The patient is postictal and is not able to answer questions. Social History Social History Smoking status: Never smoker Alcohol intake: never Substance use: never Substance use type: does not use Gender identity (if verbalized by the patient): Male Spiritual care concerns: No Agree to blood products: Yes Meds Home Medications and Allergies Home Medications Medication Instructions Recorded Confirmed Type levetiracetam [Keppra] 750 mg PO BID #60 tablet 05/13/19 Rx Allergies Allergy/AdvReac Type Severity Reaction Status Date / Time No Known Allergies Allergy Verified 07/21/19 13:38 Vital Signs Vital Signs - 24 hr 07/21/19 13:20 07/21/19 13:36 07/21/19 13:37 Temperature 37.0 C Pulse Rate 111 H 115 H Respiratory Rate 22 H 18 Blood Pressure 154/47 H 154/87 H Pulse Oximetry 99 100 100 07/21/19 13:43 07/21/19
--- NOTE | 2019-07-21 17:45 | PC.NURSE ---
Call to patient's mother Lynda to update her on plan of care and patient's status at this time. Reviewed patient's admission questions, health history and home medications with mother via telephone.
[2019-07-21] MEDS: LACTATED RINGERS 1,000 ML 125 ML IV CONT (18:48)
[2019-07-21] MEDS: levETIRAcetam IV 750 MG in DEXTROSE 5% 100 ML 430 MG IVPB (20:10)
[2019-07-21] MEDS: SODIUM CHLORIDE 0.9% IV 1,000 ML 999 ML IV CONT (21:19)
[2019-07-22] VITALS: PULSE 111
[2019-07-22] MEDS: LACTATED RINGERS 1,000 ML 125 ML IV CONT ×2 (01:49→10:51)
[2019-07-22 04:00] VITALS: PULSE 103
[2019-07-22 05:21] LABS: Basophils Percent Auto 0.3 % (0.2-1.2); Eosinophils Percent Auto 0.1 % (0-4.4); Hematocrit 42.6 % (42.0-52.0); Hemoglobin 13.5 g/dL (14.0-18.0); Immature Granulocyte Absolute 0.05 K/mm3 (0.00-0.031); Immature Granulocyte Percent A 0.4 % (0-0.5); Lymphocytes Absolute Auto 2.47 K/mm3 (0.9-3.2); Lymphocytes Percent Auto 17.3 % (18.3-44.2); Mean Corpuscular HGB Conc 31.7 g/dl (32-36); Mean Corpuscular Hemoglobin 27.3 pg (26-34); Mean Corpuscular Volume 86.1 fl (80-100); Mean Platelet Volume 10.7 fl (7.4-10.4); Monocytes Absolute Auto 1.5 K/mm3 (0.1-0.6); Monocytes Percent Auto 10.8 % (2.6-8.5); Neutrophils Absolute Auto 10.1 K/mm3 (1.3-6.7); Neutrophils Percent Auto 71.1 % (45.5-73.1); Platelet Count Result 299 k/mm3 (150-375); Red Blood Count 4.95 M/mm3 (4.6-6.20); Red Cell Distribution Width 13.8 % (11.5-14.5); White Blood Count 14.3 K/mm3 (4.5-10.0)
[2019-07-22 05:27] LABS: Alanine Aminotransferase 48 U/L (4-50); Albumin Level 3.8 g/dL (3.5-5.1); Alkaline Phosphatase 78 U/L (38-126); Aspartate Amino Transferase 36 U/L (17-59); Bilirubin,Total 0.9 mg/dL (0.2-1.3); Blood Urea Nitrogen 10 mg/dL (9-20); Calcium 8.9 mg/dL (8.4-10.2); Carbon Dioxide 23 mmol/L (22-30); Chloride 108 mmol/L (98-107); Estimated Glomerular Filt Rate > 60; Glucose 85 mg/dL (75-110); Magnesium 2.1 mg/dL (1.6-2.3); Sodium 141 mmol/L (137-145)
[2019-07-22 06:00] VITALS: BP 112/53; PULSE 112; RESP 20; TEMP 37.1; O2SAT 94
[2019-07-22 06:23] LABS: Thyroid Stimulating Hormone Reflex 0.795 uIU/mL (0.465-4.68)
[2019-07-22] MEDS: levETIRAcetam IV 750 MG in DEXTROSE 5% 100 ML 430 MG IVPB (07:57)
[2019-07-22 08:00] VITALS: PULSE 95
[2019-07-22 10:00] VITALS: BP 109/72; PULSE 98; RESP 16; TEMP 36.6; O2SAT 96
[2019-07-22 12:00] VITALS: PULSE 96
--- NOTE | 2019-07-22 12:02 | CONS_ITS ---
DATE OF CONSULTATION: 07/21/2019 HISTORY OF PRESENT ILLNESS: A 19-year-old right-handed male has been admitted to [facility] through the emergency room where he presented with a history of having had a seizure. The patient was reportedly on Keppra, which he had not taken for almost a week. The dosage was 750 mg twice a day. There was no history of any recent infection. Usually, the patient has mental capacity of a third grader as per the information available from the patient's mom. He was watching cartoons when he had a seizure, was given 5 mg of Valium in the emergency room and also intravenous Keppra. Reportedly, subsequently it was postictal. He was noted to have leukocytosis on the CBC. The patient's mother had called me because he was out of Keppra for 1 week. Reportedly, she was reluctant to continue the medication initially, but now at present she is agreeable to continue with the anticonvulsant. Initial evaluation revealed him to have fairly unremarkable physical examination. He had ongoing history of, as mentioned before, traumatic brain injury, ADD, has undergone craniotomy. He is not a drinker, not a smoker and he is taking only Keppra 750 mg twice a day. ALLERGIES: HE IS NOT ALLERGIC TO ANY MEDICATION. PHYSICAL EXAMINATION: VITAL SIGNS: Initial evaluation documented him to be afebrile with pulse of 111, respirations 22, blood pressure 154/47, pulse ox 99%. GENERAL: Physical examination revealed him to be awake, alert, cooperative, in no obvious acute distress. HEENT: Head normocephalic with no cranial bruits. Ear, nose, throat examination normal. NECK: Supple with no cervical bruits. No thyromegaly. No lymphadenopathy. HEART: Regular. LUNGS: Clear. ABDOMEN: Soft. NEUROLOGICAL: He is awake, alert, tries to follow the instructions. Speech is rather immature. Pupils round, regular. [place] of vision full. Extraocular movements full. Face symmetrical. Tongue midline. Motor examination revealed him to have no drift of one side or other side. Reflexes symmetrical. Plantars downgoing. LABORATORY DATA: Evaluation up until now revealed CBC with leukocytosis that is 19.9, hemoglobin 16.0, platelet count 393, normal basic metabolic panel, normal UA with 3+ protein, negative chest x-ray. IMPRESSION: Seizure disorder because of not taking the anticonvulsants. At this stage, he is perfectly back to normal. He will continue on the levetiracetam that is Keppra 750 mg twice a day with instruction to follow in our office in 6 weeks and he can be discharged today because mother is anxious to keep him at home. CHRISTIANO BOWEN M.D. [facility] N[facility] NURSE D I MT: De
--- NOTE | 2019-07-22 12:05 | PM.DS ---
DS: Diagnosis Admitting Diagnosis Admitting Diagnosis: Epilepsy, unspecified, not intractable, without status epilepticus Discharge Diagnosis (1) Recurrent seizures: Code(s): G40.909 - Epilepsy, unspecified, not intractable, without status epilepticus Status: Acute Assessment and Plan: According to the records the patient had been out of Keppra for about 1 week. He was started on IV Keppra 750 and has not had any recurrent seizure since admission. He is back to his baseline at this time. Dr. Liu Neurology was consulted and feels the patient can be discharged at this time to continue Keppra 750 mg BID. Follow up in the office in 4-6 weeks. (2) Leukocytosis: Qualifiers: Leukocytosis type: unspecified Qualified Code(s): D72.829 - Elevated white blood cell count, unspecified Code(s): D72.829 - Elevated white blood cell count, unspecified Status: Acute Assessment and Plan: Most likely reactive to the seizures. He had 3 seizures in total Chest x-rays negative. Urine was normal. No other signs of infection. (3) TBI (traumatic brain injury): Qualifiers: Encounter type: sequela Code(s): S06.9X9A - Unspecified intracranial injury with loss of consciousness of unspecified duration, initial encounter Status: Chronic Assessment and Plan: Patient has the mentality of an 8-year-old. DS: Summary Hospital Course Reason for hospitalization: Patient is a 19-year-old man with a history of traumatic brain injury and recent diagnosis of seizure disorder April of 2019, who presented to the emergency department after having a seizure at home. The patient's mother states he has been out of his Keppra for about 1 week and she was having trouble getting the medication refilled. Initial vitals showed temperature of 98.6?, blood pressure 154/47, heart rate 111, respiratory rate 22, oxygen saturation 99% on room air. Initial labs showed leukocytosis at 19,900, most likely secondary to his seizure activity, BMP showing elevated glucose at 226. Urinalysis showing no acute infection. Negative urine toxicology. Chest x-ray Shows no acute cardiopulmonary disease. In the emergency department patient had a 2nd seizure and was postictal for prolonged period time and was admitted to the hospital for further evaluation. He was given IV Keppra 750 mg and consulted Neurology for further evaluation. He not have any more seizures during his admission. Patient is back to his baseline at this time. Neurology evaluated him and recommended continuing his home medications of Keppra 750 b.i.d. in following up in the office in 4-6 weeks. Patient and mother understand agree with the plan all questions answered. Status at Discharge Cognitive/behavioral status at discharge: Stable, improved. Time Spent with Patient Time attestation: Total time spent providing and/or coordinating discharge services: Time spent: Greater than 30 minutes Exam Narrative: Exam Narrative: General: 19-year-old man laying flat in bed talking to his aid. Appears comfortable. In no acute distress. Skin: No jaundice or cyanosis. Good skin turgor. Neck: Full range of motion. Supple. Respiratory: Lungs are clear to auscultation bilaterally. No bony chest wall tenderness. Cardiovascular: The heart has a regular rate and rhythm without murmur. Lower extremities: No lower extremity edema. Distal pulses are easily palpated. No calf tenderness to palpation. Gastrointestinal: The abdomen is soft, nontender and nondistended with active bowel sounds. Psychiatric: History of TBI, talkative. Neurologic: Alert to self only. Slowed speech, from TBI. Moving all extremities without any issues. No focal deficits. No facial droopi
--- NOTE | 2019-07-22 13:05 | PC.NURSE ---
Call to patient's mother via telephone to review discharge instructions, medications, and follow up. All questions and concerns answered at this time.
== END 2019-07-22 13:48 | disposition home or self-care (01) ==
LOC: ANHED 15:27 → ANH2MED 15:52
PROVIDERS: Nurse Practitioner; Admitting Provider Internal Medicine; Emergency Provider Emergency Medicine; PCP Pediatrics; Visit Provider Physician Assistant
DX: G40.909 Epilepsy, unspecified, not intractable, without status epilepticus (principal); D72.829 Elevated white blood cell count, unspecified; F79 Unspecified intellectual disabilities; S06.9X9S Unspecified intracranial injury with loss of consciousness of unspecified duration, sequela; Z79.899 Other long term (current) drug therapy
CPT/HCPCS: 36415; 51701; 71045; 80048; 80053; 80307; 81001; 83735; 84443; 85025; 96361; 96374; 96376; 99285; G0378; J1953; J2060; J7030; J7120

== ENCOUNTER 2020-06-20 21:09 | Emergency (ER) | payer BC, SELFPAY ==
--- NOTE | ~2020-06-20 | CT_ITS ---
EXAMINATION: CT abdomen pelvis w con DATE: 06/21/2020 01:02 INDICATION: Abdominal pain TECHNIQUE: Computed tomography (CT) of the abdomen and pelvis was performed with 100 cc Omnipaque 350 intravenous contrast. The dose-length product was 219.57 mGy-cm. Automated exposure control and iter ative reconstruction technique were employed. COMPARISON: None. FINDINGS: Lung bases are unremarkable. No significant pleural or pericardial effusion. Heart size is normal. The liver, spleen, pancreas, adrenal glands are unremarkable. There is a small left renal cys t. There is a 5 mm right UVJ stone with mild right hydronephrosis. There is mild stranding of the fat around the renal pelvis. Gallbladder is present. Nonobstructive bowel gas pattern. No free air or free fluid. IMPRESSION: 1. Right UVJ stone measuring 5 mm with mild hydronephrosis. Reviewed, dictated and finalized at location D.
[2020-06-20 21:43] VITALS: BP 140/86; PULSE 98; RESP 16; TEMP 36.6; O2SAT 99
[2020-06-20 22:15] LABS: Add Urine Microscopic? YES; Appearance Urine Cloudy (Clear); Bacteria Urine Trace /hpf; Bilirubin Urine Negative (Negative); Blood Urine 2+ (Negative); Color Urine Amber (Yellow); Glucose Urine UA Negative (Negative); Ketones Urine 1+ mg/dL (Negative); Leukocyte Esterase Ur Negative LEU/UL (Negative); Mucus Urine Few /lpf; Nitrate Urine Negative (Negative); Protein Urine 3+ mg/dL (Negative); RBC Urine >75 /hpf (0-2); WBC Urine 0-3 /hpf
[2020-06-20 22:22] LABS: Alanine Aminotransferase 35 U/L (4-50); Albumin Level 5.2 g/dL (3.5-5.1); Alkaline Phosphatase 108 U/L (38-126); Anion Gap 14 mmol/L (8-16); Aspartate Amino Transferase 28 U/L (17-59); Bilirubin,Total 0.7 mg/dL (0.2-1.3); Blood Urea Nitrogen 13 mg/dL (9-20); Carbon Dioxide 24 mmol/L (22-30); Chloride 108 mmol/L (98-107); Estimated CRCL calculation 69 ml/min; Estimated Glomerular Filt Rate > 60; Glucose 166 mg/dL (75-110); Lipase 55 U/L (23-300); Potassium 4.4 mmol/L (3.4-5.0); Sodium 146 mmol/L (137-145)
[2020-06-20 22:27] LABS: Hematocrit 48.5 % (42.0-52.0); Hemoglobin 16.3 g/dL (14.0-18.0); Mean Corpuscular HGB Conc 33.6 g/dl (32-36); Mean Corpuscular Hemoglobin 29.6 pg (26-34); Mean Corpuscular Volume 88.2 fl (80-100); Mean Platelet Volume 10.5 fl (7.4-10.4); Platelet Count Result 417 k/mm3 (150-375); White Blood Count 21.8 K/mm3 (4.5-10.0)
[2020-06-20 22:43] LABS: Lymphocytes Absolute Manual 0.87 K/mm3 (1.1-4.5); Monocytes Absolute Manual 0.65 K/mm3 (0.1-0.90); Monocytes Percent Manual 3 % (3-9); Neutrophils Percent Manual 93 % (46-73); Platelet Estimate Adequate (Adequate); Total Cells Counted 100
[2020-06-21] MEDS: SODIUM CHLORIDE 0.9% IV 1,000 ML 150 ML IV CONT (00:36)
[2020-06-21] MEDS: ONDANSETRON INJ 4 MG/2 ML VIAL IV PUSH (01:11)
--- NOTE | 2020-06-21 01:43 | ED.ABDPAIN ---
HPI - Abdominal Pain General Chief Complaint: Abdominal Pain Stated Complaint: low back pain/ n/v Time Seen by Provider: 06/20/20 23:48 Source: patient and family Mode of arrival: ambulatory Limitations: no limitations History of Present Illness HPI narrative: 20-year-old with a history of TBI was brought in by mom with complaints of right-sided flank and right lower abdominal pain started few hours ago. Mom also reports that he had vomited few times prior to coming to the ER. No history of fever or chills. MD elicited complaint: abdominal pain and flank pain Pertinent past history: none Onset (ago): hour(s) (4) Location: RLQ and R flank Severity: moderate Quality: aching Relieving factors: nothing Associated symptoms: denies other symptoms Related Data Allergies Allergy/AdvReac Type Severity Reaction Status Date / Time No Known Allergies Allergy Verified 07/24/19 10:12 Review of Systems Review of Systems: ROS unobtainable: Yes unobtainable due to medical condition PMFSH Past Medical History Medical History (Updated 06/21/20 @ 01:48 by Freddy Mohamud MD) ADD (attention deficit disorder) TBI (traumatic brain injury) Surgical History Surgical History Hx of craniotomy Family History Family History Unknown Family history unknown The patient is postictal and is not able to answer questions. Mother Hypertension Grandparent Hypertension Diabetes mellitus Social History Social History Smoking status: Never smoker Second hand tobacco smoke exposure: No Alcohol intake: never Substance use: never Substance use type: does not use Gender identity (if verbalized by the patient): Male Spiritual care concerns: No Agree to blood products: Yes Exam Narrative: Exam Narrative: GENERAL: Well-appearing, well-nourished, and in no acute distress. HEAD: Normocephalic, atraumatic. EYES: PERRLA and EOMI. NECK: Supple. CHEST: Clear to auscultation. No respiratory distress. HEART: Regular rate and rhythm. No murmur heard. Normal peripheral pulses. ABDOMEN: Soft, mild tenderness in the right lower quadrant , nondistended, normal active bowel sounds. EXTREMITIES: Normal range of motion. No edema. SKIN: Warm, dry, no rash. NEURO: No focal deficits. Alert and oriented x3. PSYCH: Normal mood and affect. Course Course Emergency Course: Reexamined the patient is seem to be quite comfortable at this time. I palpated the abdomen was soft nontender discussed lab and CT findings with the mother , commended to increase oral fluid intake. Pain medication and antibiotic as prescribed. Vital Signs Vital signs: Vital Signs Temperature 36.6 C 06/20/20 21:43 Pulse Rate 98 06/20/20 21:43 Respiratory Rate 16 06/20/20 21:43 Blood Pressure 140/86 06/20/20 21:43 Pulse Oximetry 99 06/20/20 21:43 Temperature 36.6 C 06/20/20 21:43 Pulse Rate 98 06/20/20 21:43 Respiratory Rate 16 06/20/20 21:43 Blood Pressure 140/86 06/20/20 21:43 Pulse Oximetry 99 06/20/20 21:43 MDM - Abdominal Pain Lab Data Result diagrams: 06/20/20 22:02 06/20/20 22:02 Labs: Lab Results 06/20/20 06/20/20 06/20/20 Range/Units 22:02 22:02 22:02 WBC 21.8 H (4.5-10.0) K/mm3 RBC 5.50 (4.6-6.20) M/mm3 Hgb 16.3 (14.0-18.0) g/dL Hct 48.5 (42.0-52.0) % MCV 88.2 (80-100) fl MCH 29.6 (26-34) pg MCHC 33.6 (32-36) g/dl RDW 13.0 (11.5-14.5) % Plt Count 417 H (150-375) k/mm3 MPV 10.5 H (7.4-10.4) fl Immature Gran % (Auto) Not Reportable Neut % (Auto) Not Reportable Lymph % (Auto) Not Reportable [place] % (Auto) Not Reportable Eos % (Auto) Not Reportable Baso % (Auto) Not Reportable Lymph # (Auto) Not Reportable [place] # (Auto) Not Reportab
[2020-06-21 02:25] VITALS: BP 136/85; PULSE 94; RESP 20; TEMP 36.3; O2SAT 99
== END 2020-06-21 02:26 | disposition home or self-care (01) ==
PROVIDERS: Emergency Provider Family Medicine; PCP Pediatrics
DX: N13.2 Hydronephrosis with renal and ureteral calculous obstruction (principal); Z87.820 Personal history of traumatic brain injury
CPT/HCPCS: 36415; 74177; 80053; 81001; 83690; 85025; 96361; 96365; 96375; 99284; J0696; J2405; J7030; Q9967

== ENCOUNTER 2020-08-24 12:16 | Emergency (ER) | payer BC, SELFPAY ==
[2020-08-24 12:27] VITALS: BP 111/66; PULSE 76; RESP 20; TEMP 37.3; O2SAT 100
--- NOTE | 2020-08-24 12:31 | ED.GENADULT ---
HPI - General Adult General Chief complaint: Skin/Abscess/Foreign Body Stated complaint: boil on chest Time Seen by Provider: 08/24/20 12:31 Source: patient, family (cousin) and RN notes reviewed Mode of arrival: ambulatory Limitations: no limitations and altered mental status (due to TBI) History of Present Illness HPI narrative: 20-year-old male presents with coubill, who complains of redness, tenderness, and swelling to Dustin chest wall for the past 7 days. Cousin reports Dustin was treated per PMD office, given 7 days of Clindamycin by mouth without relief, believes today is the 7th day with increased redness and swelling. Area is tender to touch. No drainage. History of skin abscess, unknown if MRSA. No fever. No abdominal pain, nausea, and vomiting. Tolerating po intake well. Remains active. The patient's cousin reports they have not been diagnosed with COVID-19. The patient's cousin reports they are not waiting for the results of a COVID-19 lab test. The patient's cousin reports they do not have chills, weakness, fatigue, or myalgia. The patient's cousin reports they do not have a new or worsening cough or shortness of breath. Denies chest pain. The patient's cousin reports they do not have any rhinorrhea, congestion, loss of taste or smell, sore throat, and diarrhea. Denies recent traveling. Denies concerns for COVID-19 or exposures. At this time, the patient is not suspected of having COVID-19. Some parts of this dictation were generated by voice recognition software and may contain typographical and/or grammatical inaccuracies. Related Data Home Medications Medication Instructions Recorded Confirmed clindamycin HCl 08/24/20 Allergies Allergy/AdvReac Type Severity Reaction Status Date / Time No Known Allergies Allergy Verified 07/24/19 10:12 Review of Systems Review of Systems: Narrative: CONSTITUTIONAL: Denies fever, chills, sweats. EYES: Denies visual changes, redness, discharge. ENT: Denies rhinorrhea, congestion, sore throat, otalgia. CARDIOVASCULAR: Denies chest pain, palpitations, edema. RESPIRATORY: Denies dyspnea, wheezing, cough. GASTROINTESTINAL: Denies abdominal pain, nausea, vomiting, diarrhea. GENITOURINARY: Denies dysuria, hematuria, abnormal discharge. SKIN: Denies rash or itching. Chest wall with redness, tenderness, and swelling. Denies drainage. MUSCULOSKELETAL: Denies acute back pain, joint pain, or myalgia. NEUROLOGIC: Denies numbness or focal weakness. PSYCHIATRIC: Denies anxiety or depression. All systems reviewed & are unremarkable except as noted in HPI and below. [facility] Past Medical History Medical History (Updated 08/27/20 @ 15:35 by DANIELE Panda) ADD (attention deficit disorder) Recurrent seizures TBI (traumatic brain injury) Surgical History Surgical History (Updated 08/24/20 @ 12:59 by DANIELE Panda) History of knee surgery RT Hx of craniotomy Family History Family History Unknown Family history unknown The patient is postictal and is not able to answer questions. Mother Hypertension Grandparent Hypertension Diabetes mellitus Social History Social History Smoking status: Never smoker Second hand tobacco smoke exposure: No Alcohol intake: never Substance use: never Substance use type: does not use Gender identity (if verbalized by the patient): Male Spiritual care concerns: No Agree to blood products: Yes Comments At time of signature, agree with nurse past medical, surgical, social, and family history. There is relevant patient's past medical history pertinent to the presenting complaint and no relevant family history pertinent to the presenting complaint. Exam Narrative: Exam Narrative: GENERAL: This is a well-nourished, well-developed patient, in no apparent distress. Talking
== END 2020-08-24 13:22 | disposition home or self-care (01) ==
PROVIDERS: Emergency Provider Nurse Practitioner Family; PCP Pediatrics
DX: L03.313 Cellulitis of chest wall (principal)
CPT/HCPCS: 10060; 87070; 87075; 87076; 87205; 99213; G0463

== ENCOUNTER 2023-08-13 21:39 | Observation (INO) | payer OTHER, SELFPAY ==
--- NOTE | ~2023-08-13 | XR_ITS ---
EXAMINATION: XR chest 1V portable DATE: 08/13/2023 22:40 INDICATION: Seizure TECHNIQUE: frontal view of the chest was obtained. COMPARISON: Chest radiograph dated 07/21/2019 FINDINGS: The lungs remain clear with no focal airspace opacities, pulmonary edema, pleural effusion or pneumot horax. The cardiomediastinal silhouette is normal. Visualized bones and soft tissues are unremarkable . IMPRESSION: 1. No acute cardiopulmonary disease. Reviewed, dictated and finalized at location A.
--- NOTE | ~2023-08-13 | CT_ITS ---
CT head without contrast Indication: Seizure, vomiting Technique: Serial scans were obtained through the brain without the administration of contrast. Dose reduction technique was used on this scan by utilizing automated exposure control and iterative recon struction technique. The dose-length product (DLP) was 529.67 mGy-cm. Findings: There is no evidence of intracranial hemorrhage, mass lesion, or acute infarct. There is ch ronic encephalomalacia in the frontal lobes, left more extensive than right. There is additional ence phalomalacia of the bilateral temporal lobes, left more extensive than right. The ventricles and suba rachnoid spaces are dilated, consistent with mild to moderate atrophy. Low attenuation regions are s een within the periventricular white matter bilaterally, likely representing changes from chronic cecilia rovascular ischemic disease. There is no evidence of edema, mass effect or midline shift. The visua lized paranasal sinuses and mastoid air cells are clear. Impression: No intracranial hemorrhage, mass, or acute infarct. Chronic areas of encephalomalacia in the bilateral frontal lobes and bilateral temporal lobes, as det liyah above. Atrophy and chronic white matter changes, as above. Reviewed, dictated and finalized at location M. Impression: No intracranial hemorrhage, mass, or acute infarct. Chronic areas of encephalomalacia in the bilateral frontal lobes and bilateral temporal lobes, as detailed above. Atrophy and chronic white matter changes, as above.
[2023-08-13 21:40] VITALS: BP 140/81; PULSE 116; RESP 12; TEMP 36.7; O2SAT 92
[2023-08-13 21:51] LABS: Glucose Point of Care 213 mg/dl (65-105)
[2023-08-13 21:57] VITALS: PULSE 112
[2023-08-13 21:59] VITALS: BP 140/81; PULSE 110; RESP 18; TEMP 36.7; O2SAT 93
--- NOTE | 2023-08-13 22:01 | ECG_ITS ---
SEE SCANNED COPY FOR CONFIRMED REPORT MTDD
--- NOTE | 2023-08-13 22:10 | ED.GENADULT ---
HPI - General Adult General Chief complaint: Seizure <SOPHY Hays Last Filed: 08/14/23 02:26> Stated complaint: AMS S/P MULTIPLE SZ <SOPHY Hays Last Filed: 08/14/23 02:26> Time Seen by Provider: 08/13/23 21:56 <SOPHY Hays Last Filed: 08/14/23 02:26> Source: family and EMS <SOPHY Hays Last Filed: 08/14/23 02:26> Mode of arrival: EMS <SOPHY Hays Last Filed: 08/14/23 02:26> Limitations: physical limitation <SOPHY Hays Last Filed: 08/14/23 02:26> History of Present Illness HPI narrative: This is a 23-year-old male with history of TBI and known seizures who presents to the ED for chief complaint of seizure-like activity this evening. The family is bedside and states that they were watching a movie when patient started to have tonic clonic movements. They report that he has not had a seizure for 2 years. He has been recently switching over from valproate to lacosamide with his neurologist. Family does state the patient has been taking his lacosamide twice a day and has been off of his valproate for couple of days. Per EMS patient's blood sugar was in the 60s on their arrival so they gave an amp of dextrose. Patient is currently postictal and unable to provide any history. <SOPHY Hays Last Filed: 08/14/23 02:26> Related Data Home medications: Home Medications Medication Instructions Recorded Confirmed lacosamide 50 mg tablet 50 mg PO Q12H 08/13/23 08/13/23 <SOPHY Hays Last Filed: 08/14/23 02:26> Allergies/adverse reactions: Allergies Allergy/AdvReac Type Severity Reaction Status Date / Time No Known Allergies Allergy Verified 10/13/21 11:06 <SOPHY Hays Last Filed: 08/14/23 02:26> Review of Systems Review of Systems: All systems as dictated in HPI <Jules Alfonso PA-C - Last Filed: 08/14/23 02:26> [facility] Past Medical History Medical History: Medical History (Updated 08/14/23 @ 01:06 by Jules Alfonso PA-C) ADD (attention deficit disorder) Recurrent seizures TBI (traumatic brain injury) <Jules Alfonso PA-C - Last Filed: 08/14/23 02:26> Surgical History Surgical History: Surgical History (Updated 10/13/21 @ 11:06 by Don Frye) History of knee surgery RT Hx of craniotomy <Jules Alfonso PA-C - Last Filed: 08/14/23 02:26> Family History Family History: Family History (System 10/13/21 @ 11:06 by Don Frye) Unknown Family history unknown The patient is postictal and is not able to answer questions. Mother Hypertension Grandparent Hypertension Diabetes mellitus <Jules Alfonso PA-C - Last Filed: 08/14/23 02:26> Social History Social History: Social History (System 10/13/21 @ 11:06 by Don Frye) Smoking status: Never smoker Second hand tobacco smoke exposure: No Alcohol intake: never Substance use: never Substance use type: does not use Gender identity (if verbalized by the patient): Male Spiritual care concerns: No Agree to blood products: Yes <Jules Alfonso PA-C - Last Filed: 08/14/23 02:26> Exam Narrative: GENERAL: Appears postictal HEAD: Normocephalic, atraumatic. EYES: PERRLA and EOMI. ENT: No obvious tongue laceration or lip laceration. Nares clear, no rhinorrhea or epistaxis. Mucous membranes moist. Oropharynx without tonsillar hypertrophy exudate or other lesions. NECK: Supple. No adenopathy or masses. CHEST: No respiratory distress. Clear to auscultation. No wheezes rales or rhonchi HEART: Regular rate and rhythm. No murmur heard. Normal peripheral pulses. ABDOMEN: Soft, nontender, nondistended, normal active bowel sounds. MSK: Normal range of motion. No edema. SKIN: Warm, dry, no rash. NEURO: Postictal. Opens eyes and turns towards me when I say his name. Follows basic commands PSYCH: Normal mood and affect. <Jules Alfonso PA-C - Last Filed: 08/13
[2023-08-13 23:06] LABS: Basophils Absolute Auto 0.1 K/mm3 (0.0-0.1); Basophils Percent Auto 0.6 % (0.2-1.2); Eosinophils Absolute Auto 0.1 K/mm3 (0-0.3); Eosinophils Percent Auto 0.8 % (0-4.4); Hematocrit 47.9 % (42.0-52.0); Hemoglobin 15.8 g/dL (14.0-18.0); Lymphocytes Absolute Auto 2.11 K/mm3 (0.9-3.2); Mean Corpuscular Volume 87.9 fl (80-100); Mean Platelet Volume 10.1 fl (7.4-10.4); Monocytes Absolute Auto 0.8 K/mm3 (0.1-0.6); Monocytes Percent Auto 8.1 % (2.6-8.5); Neutrophils Absolute Auto 6.9 K/mm3 (1.3-6.7); Neutrophils Percent Auto 68.5 % (45.5-73.1); Platelet Count Result 290 k/mm3 (150-375); Red Blood Count 5.45 M/mm3 (4.6-6.20); Red Cell Distribution Width 12.5 % (11.5-14.5)
[2023-08-13] MEDS: levETIRAcetam 1000MG/NACL100ML 1,000 MG/100 ML BAG 400 MG IVPB (23:07)
[2023-08-13 23:23] LABS: Alanine Aminotransferase 166 U/L (6-50); Albumin Level 4.9 g/dL (3.5-5.1); Alkaline Phosphatase 72 U/L (38-126); Anion Gap 14 mmol/L (4-12); Aspartate Amino Transferase 84 U/L (17-59); Bilirubin,Total 0.6 mg/dL (0.2-1.3); Blood Urea Nitrogen 11 mg/dL (9-20); Calcium 9.1 mg/dL (8.4-10.2); Carbon Dioxide 20 mmol/L (22-30); Chloride 104 mmol/L (98-107); Estimated CRCL calculation 103 ml/min; Estimated Glomerular Filt Rate > 60; Glucose 148 mg/dL (65-110); Potassium 3.5 mmol/L (3.4-5.0); Sodium 138 mmol/L (137-145)
[2023-08-13 23:54] LABS: Creatine Kinase 164 U/L (55-170)
[2023-08-14 00:10] VITALS: BP 115/71; PULSE 97; RESP 18; O2SAT 99
[2023-08-14] MEDS: ONDANSETRON INJ 4 MG/2 ML VIAL IV PUSH (00:27)
[2023-08-14 00:38] LABS: Glucose Point of Care 112 mg/dl (65-105)
[2023-08-14 00:44] LABS: Lactic Acid Reflex 3.4 mmol/L (0.7-2.0)
[2023-08-14 01:07] VITALS: BP 129/95; PULSE 98; RESP 22; O2SAT 95
[2023-08-14 02:08] LABS: Glucose Point of Care 109 mg/dl (65-105)
[2023-08-14 03:00] VITALS: BP 134/85; PULSE 87; RESP 20; TEMP 36.9; O2SAT 98; BMI 29.7
--- NOTE | 2023-08-14 03:04 | ADMGEN ---
This patient, Dustin Hull, was admitted to 3 [facility] Surg Room 309-01. Patient/family oriented to hospital policies and general routines including ID bracelet, bed and alarms, visiting hours, pain management, procedures, bathroom and other care routines, personal items, smoking policy, room service/diet, and visiting hours. Information on how to activate the Rapid Response Team has been discussed. Patient/Family are encouraged to report perceived risks to care and to ask questions if they do not understand what they are told or what they should do.
[2023-08-14 03:26] LABS: Reflex Lactic Acid Yes or No Add Lactic
--- NOTE | 2023-08-14 04:02 | PM.IMHP ---
H&P: HPI History of Present Illness Date/Time: 08/14/23 04:02 Chief Complaint: convulsions Narrative: ?23-year-old male with history of TBI and known seizures who presents to the ED for chief complaint of seizure-like activity this evening.? The family is bedside and states that they were watching a movie when patient started to have tonic clonic movements.? They report that he has not had a seizure for 2 years.? He has been recently switching over from valproate to lacosamide with his neurologist.?? family on bedside patient pleasantly confused this time at the time of blood bank assistant arrival patient's blood sugar in the 60s patient apparently but disoriented patient received dextrose bolus. ED spoke to the neurologist to have decided to increase to lacosamide 100 mg twice a day Review of Systems Review of Systems: All systems reviewed & are unremarkable except as noted in HPI and below PMFSH Past Medical History Medical History (Updated 08/14/23 @ 01:06 by Jules Alfonso PA-C) ADD (attention deficit disorder) Recurrent seizures TBI (traumatic brain injury) Surgical History Surgical History (Updated 10/13/21 @ 11:06 by Don Frye) History of knee surgery RT Hx of craniotomy Family History Family History (System 10/13/21 @ 11:06 by Don Frye) Unknown Family history unknown The patient is postictal and is not able to answer questions. Mother Hypertension Grandparent Hypertension Diabetes mellitus Social History Social History (System 10/13/21 @ 11:06 by Don Frye) Smoking status: Never smoker Second hand tobacco smoke exposure: No Alcohol intake: never Substance use: never Substance use type: does not use Do You Feel Safe in your Home?: No Lack of Transportation: No Lack of Food: Never True Current Housing: I Have Housing Concerned About Future Housing: No Difficulty Paying Gas/Electric Bills: No Difficulty Paying for Meds: No Currently Unemployed: No Education: Don't Know Difficulty w/ Childcare or Family Care: No Gender identity (if verbalized by the patient): Male Spiritual care concerns: Yes Agree to blood products: Yes Meds Home Medications and Allergies Home Medications Medication Instructions Recorded Confirmed Type lacosamide 50 mg tablet 50 mg PO Q12H 08/13/23 08/13/23 History Allergies Allergy/AdvReac Type Severity Reaction Status Date / Time No Known Allergies Allergy Verified 10/13/21 11:06 Vital Signs Vital Signs - 24 hr 08/13/23 21:40 08/13/23 21:57 08/13/23 21:59 Temperature 36.7 C 36.7 C Pulse Rate 116 H 112 H 110 H Respiratory Rate 12 18 Blood Pressure 140/81 140/81 Pulse Oximetry 92 93 Oxygen Delivery Room Air 08/13/23 21:59 08/14/23 00:10 08/14/23 01:07 Temperature Pulse Rate 97 98 Respiratory Rate 18 22 H Blood Pressure 115/71 129/95 H Pulse Oximetry 93 99 95 Oxygen Delivery Room Air 08/14/23 03:00 Temperature 36.9 C Pulse Rate 87 Respiratory Rate 20 Blood Pressure 134/85 Pulse Oximetry 98 Oxygen Delivery Exam Narrative: GENERAL: Well appearing, no acute distress. HEAD: Normocephalic, atraumatic. NECK: Supple. No adenopathy, no masses. RESPIRATORY: respirations nonlabored. , no rales, wheezing. CARDIOVASCULAR: Regular rate and rhythm without murmurs, . Peripheral pulses 2+ and equal bilaterally. ABDOMINAL: Soft, nontender, nondistended, no hepatosplenomegaly. Normoactive BS. SKIN: Warm, dry, NEURO: A&O X2. Moves all extremities H&P: Results Labs Labs: Short CBC 08/13/23 Range/Units 23:01 WBC 10.0 (4.5-10.0) K/mm3 Hgb 15.8 (14.0-18.0) g/dL Hct 47.9 (42.0-52.0) % Plt Count 290 (150-375) k/mm3 [facility] 08/13/23 23:01 Sodium 138 Potassium 3.5 Chloride 104 Carbon Dioxide 20 L BUN 11 Creatinine 1.00 Glucose 148 H Calcium 9.1 Cardiac Enzymes 08/13/23 Range/Units 23:01 Total Creatine Kinase 164 (55-17
[2023-08-14] MEDS: DEXTROSE 5%/0.45% SOD CHL 1,000 ML 100 ML IV CONT (04:35)
[2023-08-14 06:00] VITALS: BP 103/64; PULSE 99; RESP 16; TEMP 36.7; O2SAT 97
[2023-08-14 06:27] LABS: Lactic Acid 2.1 mmol/L (0.7-2.0)
[2023-08-14] MEDS: LACOSAMIDE (*CRX) 100 MG TABLET PO (08:29)
--- NOTE | 2023-08-14 09:04 | WPDNEUROLOGY ---
Neurology EEG Report General Information Date of Study: 08/14/23 TEST eeg DIAGNOSIS Generalized seizures CONDITION OF RECORDING awake and sleep EEG NUMBER [id number] CLINICAL HISTORY History of traumatic brain injury about 15 years ago that resulted in patient having seizures. Has been seizure free for 2 years until last night. Mother states that they are in middle of changing seizure medications. EEG DESCRIPTION Background rhythm consists of low-voltage 15 to 18 hertz per 2nd beta with poor colton posterior gradient and admixed with multiple movements and muscle artifact. Intermittent regular EKG artifact is also noted during wakefulness. Bilateral symmetrical sleep activity is noted again with multiple movement and muscle artifacts along with the EKG artifact. Hyperventilation not done. Photic stimulation not done. Non paroxysmal. Nonfocal. Nonlateralizing. IMPRESSION No significant abnormalities noted but this tracing is compromised by multiple muscle, and movement artifacts. Clinical correlation recommended.
--- NOTE | 2023-08-14 09:28 | PM.IMPN ---
Progress Note: A&P Assessment and Plan (1) Generalized seizure: Code(s): R56.9 - Unspecified convulsions Status: Acute Assessment and Plan: Patient had a witnessed tonic clonic seizure yesterday at home, presented in a postictal state. He has history of total brain injury, has history of seizures ever since the accident and is been followed by Neurology on an outpatient basis who recently just switched him from Valproate to Lacosamide. Continue lacosamide 100 mg b.i.d. as recommended by his neurology team EEG was uneventful Monitor for the next 24 hours for any more seizure activity. If he does not have any more seizure activity can likely go home and follow-up with his neurologist in a week. (2) TBI (traumatic brain injury): Qualifiers: Encounter type: sequela Code(s): S06.9X9A - Unspecified intracranial injury with loss of consciousness of unspecified duration, initial encounter Status: Chronic Assessment and Plan: Of note (3) Transaminitis: Code(s): R74.0 - Nonspecific elevation of levels of transaminase and lactic acid dehydrogenase [LDH] Status: Acute Assessment and Plan: Suspect shock liver post seizure Initial liver enzymes AST 84, ALT 166 Today liver enzymes Continue to trend (4) Elevated lactic acid level: Code(s): R79.89 - Other specified abnormal findings of blood chemistry Status: Acute Assessment and Plan: Likely secondary to seizure activity Initial lactate 3.4, now down to 2.1 Time Spent With Patient Time with patient: 25 - 35 minutes Subjective Date/time seen: 08/14/23 09:28 Interval history: This is a 23-year-old male who presented to hospital for evaluation of seizures. Patient has history of total brain injury and has had known seizures ever since that time. He has been seizure-free for 2 years and recently switched over from Valproate to lacosamide with his neurologist. Patient had a witnessed tonic clonic seizure at home and presented in a postictal state. ED spoke to the neurologist and decided to increase the lacosamide to 100 mg b.i.d. initial labs shown a bicarb level of 20, anion gap 14, lactic acid 3.4> 2.1, AST 84, ALT 166. Patient was given 1 g of Keppra and some Zofran while in the ED. On examination today patient. He denies. He endorses. Labs today show a white blood cell count of 12.4, lactate 2.1. Continue to monitor for seizure activity. He does not have any seizure activity in the next 24 hours we may be able to discharge home with follow-up with Neurology. Review of Systems Review of Systems: All systems reviewed & are unremarkable except as noted in HPI and below Constitutional: Constitutional: Reports as per HPI and Reports no additional constitutional complaints Eyes: Eyes: Reports as per HPI and Reports no additional eye complaints ENT: Reports system reviewed and no additional complaints, except as documented and Reports as per HPI Cardiovascular: Cardiovascular: Reports as per HPI and Reports no additional cardiovascular complaints Respiratory: Respiratory: Reports as per HPI and Reports no additional respiratory complaints Gastrointestinal: Gastrointestinal: Reports as per HPI and Reports no additional gastrointestinal complaints Genitourinary: Genitourinary: Reports no additional male genitourinary complaints and Reports as per HPI Musculoskeletal: Musculoskeletal: Reports no additional musculoskeletal complaints and Reports as per HPI Integumentary/Breasts: Skin/Breast: Reports system reviewed and no additional complaints, except as docu and Reports as per HPI Neurologic: Reports system reviewed and no additional complaints, except as documented and Reports as per HPI Psychiatric: Psychiatric: Reports no additional psychiatric complaints and Reports as per HPI Exam Narrative: General: In no acute distress, well nourished Head: atraumatic, no enc
[2023-08-14 09:40] LABS: Basophils Absolute Auto 0.1 K/mm3 (0.0-0.1); Basophils Percent Auto 0.4 % (0.2-1.2); Hematocrit 46.5 % (42.0-52.0); Hemoglobin 15.1 g/dL (14.0-18.0); Immature Granulocyte Absolute 0.06 K/mm3 (0.00-0.031); Immature Granulocyte Percent A 0.5 % (0-0.5); Lymphocytes Absolute Auto 2.21 K/mm3 (0.9-3.2); Lymphocytes Percent Auto 17.8 % (18.3-44.2); Mean Corpuscular HGB Conc 32.5 g/dl (32-36); Mean Corpuscular Hemoglobin 28.4 pg (26-34); Mean Corpuscular Volume 87.4 fl (80-100); Mean Platelet Volume 10.9 fl (7.4-10.4); Monocytes Absolute Auto 0.8 K/mm3 (0.1-0.6); Monocytes Percent Auto 6.1 % (2.6-8.5); Neutrophils Absolute Auto 9.3 K/mm3 (1.3-6.7); Neutrophils Percent Auto 75.2 % (45.5-73.1); Platelet Count Result 308 k/mm3 (150-375); Red Blood Count 5.32 M/mm3 (4.6-6.20); Red Cell Distribution Width 12.7 % (11.5-14.5); White Blood Count 12.4 K/mm3 (4.5-10.0)
[2023-08-14 10:04] LABS: Alanine Aminotransferase 157 U/L (6-50); Albumin Level 4.5 g/dL (3.5-5.1); Alkaline Phosphatase 68 U/L (38-126); Anion Gap 9 mmol/L (4-12); Aspartate Amino Transferase 71 U/L (17-59); Bilirubin,Total 0.7 mg/dL (0.2-1.3); Blood Urea Nitrogen 10 mg/dL (9-20); Carbon Dioxide 24 mmol/L (22-30); Chloride 106 mmol/L (98-107); Estimated CRCL calculation 108 ml/min; Estimated Glomerular Filt Rate > 60; Glucose 139 mg/dL (65-110); Potassium 4.1 mmol/L (3.4-5.0); Sodium 139 mmol/L (137-145)
--- NOTE | 2023-08-14 11:41 | WPDNEURCNPN ---
Assessment and Plan Assessment and plan (1) Generalized seizure: Code(s): R56.9 - Unspecified convulsions Status: Acute (2) TBI (traumatic brain injury): Qualifiers: Encounter type: sequela Code(s): S06.9X9A - Unspecified intracranial injury with loss of consciousness of unspecified duration, initial encounter Status: Chronic (3) Breakthrough seizure: Code(s): G40.919 - Epilepsy, unspecified, intractable, without status epilepticus Status: Acute Plan 1. Status post traumatic brain injury 2. Resultant seizure disorder 3. Recent change of anticonvulsants resulting in the breakthrough seizure. 4. As he has been started on lacosamide dosage was increased [id number] twice a day with instruction to the mother for the follow-up with the neurologist. His routine blood studies are compatible with mild elevation of AST and ALT lactic acid 2.1 because of the elevation of the hepatic enzyme he can be followed by his neurologist. Consult date: 08/14/23 HPI: Dustin Hull is a 23 year old male Admitted to the hospital through the emergency room with history of traumatic brain injury and known seizure disorder for the chief complaint of seizure-like activity in the evening. Reportedly family was watching movie when patient started to have tonic-clonic movements patient has not had a seizure for the last 2 years and recently he was switched over from valproate to lacosamide by his neurologist. Patient has been taking lacosamide twice a day and has been off his valproate for the last couple of days. On initial evaluation by EMS blood sugar was in the 60s for the did give him an amp of dextrose. His present medication included lacosamide 50mg q.12 hours, he is not allergic to any medication, his past history is consistent with the attention deficit disorder and recurrent seizures in addition to traumatic brain injury he was also undergone craniotomy in addition to right knee surgery he does not smoke does not drink and on initial exam in the emergency room documented him to be postictal only opening his eyes and turning stools the examiner when he called his name. His initial vital signs were normal, routine lab studies included a CBC, basic metabolic panel which were all normal except the blood sugar of 148. His initial CT scan of the head documented no evidence of bleed or tumor he was noted to have chronic encephalomalacia in the frontal lobes left more than right in addition to the bilateral temporal lobe and encephalomalacia and dilated ventricles subarachnoid spaces consistent with mild to moderate atrophy, chest x-ray was negative for aspiration. EEG has already been obtained which revealed no evidence of active paroxysmal activity. Review of Systems Review of Systems: All systems reviewed & are unremarkable except as noted in HPI and below PMFSH Past Medical History Medical History ADD (attention deficit disorder) Recurrent seizures TBI (traumatic brain injury) Surgical History Surgical History History of knee surgery RT Hx of craniotomy Family History Family History Unknown Family history unknown The patient is postictal and is not able to answer questions. Mother Hypertension Grandparent Hypertension Diabetes mellitus Social History Social History Smoking status: Never smoker Second hand tobacco smoke exposure: No Alcohol intake: never Substance use: never Substance use type: does not use Do You Feel Safe in your Home?: No Lack of Transportation: No Lack of Food: Never True Current Housing: I Have Housing Concerned About Future Housing: No Difficulty Paying Gas/Electric Bills: No Difficulty Paying for Meds: No Currently Unemployed: No Education
--- NOTE | 2023-08-14 12:27 | PM.DS ---
DS: Admitting Diagnosis Discharge Date 08/14/23 Admitting Diagnosis Generalized seizure History of total brain injury Transaminitis DS: Summary Hospital Course Reason for hospitalization: Generalized seizure History of total brain injury Transaminitis Hospital Course: This is a 23-year-old male who presented to hospital for evaluation of seizures.? Patient has history of total brain injury and has had known seizures ever since that time.? He has been seizure-free for 2 years and recently switched over from Valproate to lacosamide with his neurologist.? Patient had a witnessed tonic clonic seizure at home and presented in a postictal state.? ED spoke to the neurologist and decided to increase the lacosamide to 100 mg b.i.d. initial labs shown a bicarb level of 20, anion gap 14, lactic acid 3.4> 2.1, AST 84, ALT 166.? Patient was given 1 g of Keppra and some Zofran while in the ED. On examination today patient is alert and oriented x3 lying in the bed. Mother is at the bedside. He denies any fever, chills, nausea, vomiting, diarrhea, abdominal pain, shortness breath, chest pain.? He appears to be back at his normal baseline. Labs today show a white blood cell count of 12.4, lactate 2.1, AST 71, ALT 57.? Patient has not had any more seizures and would like to go home today. Neurology agrees with discharge today. He will need to follow up with his neurologist at [facility] within the next couple of weeks. A prescription was called in for lacosamide 100 mg b.i.d. Final diagnosis: Breakthrough seizure, transaminitis Status at Discharge Cognitive/behavioral status at discharge: Alert oriented x3 Functional status at discharge: independent ambulation Overall status at discharge: patient is progressing back to baseline Time Spent with Patient Time attestation: Total time spent providing and/or coordinating discharge services: Time spent: Greater than 30 minutes Exam Narrative: General: In no acute distress, well nourished Head: atraumatic, no encephalopathy Eyes: EOMI, PERRLA, sclera clear ENT: moist mucous membranes, nasal passages clear Neck: supple, no JVD, no adenopathy, trachea midline Cardiac: Normal S1 and S2. RRR, No murmur, gallops or friction rubs, peripheral pulses intact. Respiratory: Lungs clear to auscultation, no adventitious lung sounds, currently on room air Gastrointestinal: soft, non-distended, non-tender, normoactive bowel sounds. : voiding without difficulty. Extremities: moves all extremities well, no edema, good ROM, strength 5/5 Skin: clean, dry, intact. No wounds or lesions. Neuro: Alert and oriented x4, cranial nerves intact, no neuro deficits.No seizure activity noted. 8 year old level of functioning due to TBI Psych: normal mood, normal affect, interactive DS: Data Data Completed and Pending Completed studies during hospitalization: Head CT Chest x-ray Pending studies at discharge: None Labs on day of discharge: Labs from last 24 hours 08/14/23 08/14/23 08/14/23 05:46 05:45 02:04 WBC 12.4 H RBC 5.32 Hgb 15.1 Hct 46.5 MCV 87.4 MCH 28.4 MCHC 32.5 RDW 12.7 Plt Count 308 MPV 10.9 H Immature Gran % (Auto) 0.5 Neut % (Auto) 75.2 H Lymph % (Auto) 17.8 L [place] % (Auto) 6.1 Eos % (Auto) 0.0 Baso % (Auto) 0.4 Lymph # (Auto) 2.21 [place] # (Auto) 0.8 H Eos # (Auto) 0.0 Baso # (Auto) 0.1 Abs Immat Gran (auto) 0.06 H Absolute Neuts (auto) 9.3 H Absolute Nucleated RBC 0.000 Nucleated RBC % 0.0 Sodium 139 Potassium 4.1 Chloride 106 Carbon Dioxide 24 Anion Gap 9 BUN 10 Creatinine 0.90 Estim Creat Clear Calc 108 Estimated GFR > 60 Glucose 139 H POC Capillary Glucose 109 H Lactic Acid 2.1 H Calcium 9.0 Total Bilirubin 0.7 AST 71 H ALT 157 H Alkaline Phosphatase 68 Total Creatine Kinase Total Protein 7.0 Albumin 4.5 Levetiracetam 08/14/23 08/14/23 08/13/23
[2023-08-15 14:37] LABS: Levetiracetam Keppra <2.0 mcg/mL (6.0-46.0)
== END 2023-08-14 14:00 | disposition home or self-care (01) ==
LOC: ANHED 08-14 01:06 → ANH3MEDSUR 08-14 02:26
PROVIDERS: Nurse Practitioner Acute Care; Admitting Provider Internal Medicine; Emergency Provider Physician Assistant; PCP Pediatrics; Visit Provider Internal Medicine
DX: G40.909 Epilepsy, unspecified, not intractable, without status epilepticus (principal); R74.01 Elevation of levels of liver transaminase levels; R74.02 Elevation of levels of lactic acid dehydrogenase [LDH]; Z87.820 Personal history of traumatic brain injury
CPT/HCPCS: 36415; 70450; 71045; 80053; 80177; 82550; 82948; 83605; 85025; 93005; 95816; 96365; 96374; 99285; A9270; G0379; J1953; J2405

== ENCOUNTER 2023-08-23 11:59 | Emergency (ER) | payer OTHER, SELFPAY ==
[2023-08-23] VITALS (14 sets, daily range): BP systolic 100–133; BP diastolic 61–96; PULSE 91–114; RESP 12–22; TEMP 36.4–36.7; O2SAT 94–99
--- NOTE | 2023-08-23 12:11 | ECG_ITS ---
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 Measurements Intervals [place] Rate: 114 P: 46 NM: 162 QRS: 40 QRSD: 94 T: 30 QT: 311 QTc: 428 Interpretive Statements SINUS TACHYCARDIA INCOMPLETE RIGHT BUNDLE BRANCH BLOCK BASELINE ARTIFACT- I, III, AVR, AVL ABNORMAL ECG No previous ECG available for comparison Electronically Signed On 08-23-2023 14:45:15 CDT by Alistair Singer D.O.
[2023-08-23 12:20] LABS: Basophils Absolute Auto 0.2 K/mm3 (0.0-0.1); Basophils Percent Auto 0.9 % (0.2-1.2); Eosinophils Absolute Auto 0.2 K/mm3 (0-0.3); Eosinophils Percent Auto 1.3 % (0-4.4); Hematocrit 52.1 % (42.0-52.0); Hemoglobin 16.4 g/dL (14.0-18.0); Immature Granulocyte Absolute 0.34 K/mm3 (0.00-0.031); Lymphocytes Absolute Auto 8.75 K/mm3 (0.9-3.2); Lymphocytes Percent Auto 50.4 % (18.3-44.2); Mean Corpuscular HGB Conc 31.5 g/dl (32-36); Mean Corpuscular Hemoglobin 28.6 pg (26-34); Mean Corpuscular Volume 90.8 fl (80-100); Mean Platelet Volume 10.3 fl (7.4-10.4); Monocytes Absolute Auto 1.5 K/mm3 (0.1-0.6); Monocytes Percent Auto 8.4 % (2.6-8.5); Neutrophils Absolute Auto 6.4 K/mm3 (1.3-6.7); Platelet Count Result 422 k/mm3 (150-375); Red Blood Count 5.74 M/mm3 (4.6-6.20); White Blood Count 17.4 K/mm3 (4.5-10.0)
[2023-08-23 12:40] LABS: Albumin Level 5.5 g/dL (3.5-5.1); Alkaline Phosphatase 72 U/L (38-126); Anion Gap 24 mmol/L (4-12); Aspartate Amino Transferase 91 U/L (17-59); Bilirubin,Total 0.9 mg/dL (0.2-1.3); Blood Urea Nitrogen 13 mg/dL (9-20); Calcium 9.5 mg/dL (8.4-10.2); Carbon Dioxide 11 mmol/L (22-30); Chloride 107 mmol/L (98-107); Estimated CRCL calculation 88 ml/min; Estimated Glomerular Filt Rate > 60; Glucose 131 mg/dL (65-110); Potassium 3.9 mmol/L (3.4-5.0); Sodium 142 mmol/L (137-145)
[2023-08-23 12:55] LABS: Alanine Aminotransferase 181 U/L (6-50)
[2023-08-23] MEDS: LACOSAMIDE (*CRX) 100 MG TABLET 150 MG PO (14:06)
--- NOTE | 2023-08-23 14:24 | ED.SEIZURE ---
HPI - Seizure General Chief Complaint: Seizure Stated Complaint: Seizure Time Seen by Provider: 08/23/23 13:15 History of Present Illness HPI Narrative: This is a 23-year-old male, with history of TBI and subsequent seizures, brought in by EMS from his place of work for 2 seizures. Seizures reportedly lasted 35-40 seconds respectively with return to baseline mentation between each. The patient's mother, at bedside notes he has been transitioning divalproex 2 lamotrigine and has not increased the lamotrigine dose as planned due to miscommunication. The patient has no other complaints at this time. Seizure History: Yes (2019) Related Data Allergies Allergy/AdvReac Type Severity Reaction Status Date / Time No Known Allergies Allergy Verified 10/13/21 11:06 Review of Systems Review of Systems: All systems reviewed & are unremarkable except as noted in HPI and below PMFSH Past Medical History Medical History ADD (attention deficit disorder) Recurrent seizures TBI (traumatic brain injury) Surgical History Surgical History History of knee surgery RT Hx of craniotomy Family History Family History Unknown Family history unknown The patient is postictal and is not able to answer questions. Mother Hypertension Grandparent Hypertension Diabetes mellitus Social History Social History Smoking status: Never smoker Second hand tobacco smoke exposure: No Alcohol intake: never Substance use: never Substance use type: does not use Do You Feel Safe in your Home?: No Lack of Transportation: No Lack of Food: Never True Current Housing: I Have Housing Concerned About Future Housing: No Difficulty Paying Gas/Electric Bills: No Difficulty Paying for Meds: No Currently Unemployed: No Education: Don't Know Difficulty w/ Childcare or Family Care: No Gender identity (if verbalized by the patient): Male Spiritual care concerns: Yes Agree to blood products: Yes Exam Narrative: GENERAL: Well-developed, well-nourished, and in no acute distress. HEAD: Normocephalic, atraumatic. EYES: PERRLA and EOMI. ENT: Nares clear, no rhinorrhea or epistaxis. Mucous membranes moist. Oropharynx without tonsillar hypertrophy exudate or other lesions. CHEST: Clear to auscultation. No respiratory distress. No wheezes rales or rhonchi HEART: Regular rate and rhythm. No murmur heard. Normal peripheral pulses. ABDOMEN: Soft, nontender, nondistended, normal active bowel sounds. EXTREMITIES: Normal range of motion. No edema. SKIN: Warm, dry, no rash. NEURO: Alert and oriented x3. Left arm contracture and intermittent tremors (baseline), otherwise strength 5/5 in all extremities and sensation intact bilaterally. Moving all 4 limbs spontaneously PSYCH: Normal mood and affect. Course Course Emergency Course: 15:57 - Results delayed by technical difficulties with [employer]. Chemistries demonstrate mild ALT/AST elevations of 181/9 1 respectively but is otherwise unremarkable. Urinalysis demonstrates trace ketonuria but is otherwise not concerning for UTI or glucosuria. Patient tested negative for influenza and COVID. I suspect the transition of the patient's antiepileptic medications and subsequent low dosing with is the cause of the patient's seizures. Will discharge recommendation for neurology follow-up (already scheduled in 3 days) and primary care follow-up. I discussed the findings and recommendations with the patient and his parent. Discussed return and emergency precautions including signs/symptoms of intracranial hemorrhage and stroke. The patient voiced understanding and agreement with the plan. All questions answered to his satisfaction. Vital Signs Vital signs: Vital Signs T
[2023-08-23 15:35] LABS: Add Urine Microscopic? YES; Appearance Urine Clear (Clear); Bacteria Urine None Seen /hpf; Bilirubin Urine Negative (Negative); Blood Urine Negative (Negative); Color Urine Yellow (Yellow); Glucose Urine UA Negative (Negative); Ketones Urine Trace mg/dL (Negative); Leukocyte Esterase Ur Negative LEU/UL (Negative); Need Manual Microscopic Reviewed; Nitrate Urine Negative (Negative); Non Pathogenic Casts 0-2; Protein Urine 1+ mg/dL (Negative); RBC Urine 0-2 /hpf (0-2); Specific Grav Ur 1.024 (1.001-1.035); Squamous Epithelial Cell Urine None Seen /hpf (Few); Urobilinogen Urine 0.2 mg/dL (<2.0); WBC Urine 0-5 /hpf (0-3); pH Urine 6.5 (5.0-9.0)
[2023-08-23 15:36] LABS: Spermatozoa Urine PRESENT
[2023-08-23 15:52] LABS: Influenza A QL RT-PCR Negative (Negative); Influenza B QL RT-PCR Negative (Negative); SARS-CoV-2 RNA PCR Negative (Negative)
== END 2023-08-23 16:31 | disposition home or self-care (01) ==
PROVIDERS: Emergency Medicine; Emergency Provider Preventive Medicine Aerospace Medicine; PCP Pediatrics
DX: G40.909 Epilepsy, unspecified, not intractable, without status epilepticus (principal); F98.8 Other specified behavioral and emotional disorders with onset usually occurring in childhood and adolescence; Z87.820 Personal history of traumatic brain injury; Z20.822 Contact with and (suspected) exposure to COVID-19
CPT/HCPCS: 36415; 80053; 81001; 85025; 87636; 93005; 99284; A9270

== ENCOUNTER 2023-09-26 10:31 | Emergency (ER) | payer OTHER, SELFPAY ==
[2023-09-26] VITALS (7 sets, daily range): BP systolic 114–136; BP diastolic 77–94; PULSE 101–119; RESP 15–23; TEMP 36.8; O2SAT 94–100
--- NOTE | ~2023-09-26 | CT_ITS ---
EXAMINATION: CT brain wo con DATE: 09/26/2023 12:46 INDICATION: Seizure. TECHNIQUE: Computed tomography (CT) of the head was performed without intravenous contrast. The mA wa s adjusted according to patient size. Iterative reconstruction technique was employed. The dose-lengt h product was 681.00 mGy-cm. COMPARISON: Head CT 08/14/2023 FINDINGS: There is chronic encephalomalacia in left temporal occipital region. There is chronic encep halomalacia in the frontal lobes. There is chronic encephalomalacia in right temporal lobe. There is no intracranial hemorrhage, acute infarction, or abnormal intracranial mass lesion. The ventricles ar e normal in size. There is mild mucosal thickening in the paranasal sinuses. The orbits are normal. T he mastoid air cells are normal. IMPRESSION: 1. Old infarcts in the brain. Reviewed, dictated and finalized at location E.
--- NOTE | ~2023-09-26 | CT_ITS ---
EXAMINATION: CT abdomen pelvis w con DATE: 09/26/2023 12:48 INDICATION: Abdominal pain. Vomiting. TECHNIQUE: Computed tomography (CT) of the abdomen and pelvis was performed with 100 mL Omnipaque 350 intravenous contrast. Automated exposure control and iterative reconstruction technique were employe d. The dose-length product was 437.16 mGy-cm. COMPARISON: CT abdomen and pelvis 06/21/2020 FINDINGS: The visualized portions of the lung bases demonstrate mild atelectasis. No pleural effusion . The heart size is normal. No pericardial effusion. There is diffuse hepatic steatosis. The gallblad williams, spleen, pancreas, adrenal glands, and right kidney are normal. There is a 5 mm cyst in left kidn ey. There are no dilated loops of bowel. The appendix is normal. There are no pathologically enlarged lymph nodes. There is no free intraperitoneal fluid. There is mild thoracic spondylosis. IMPRESSION: 1. Diffuse hepatic steatosis. Reviewed, dictated and finalized at location E.
[2023-09-26] MEDS: SODIUM CHLORIDE 0.9% IV 1,000 ML 999 ML IV CONT (11:38)
[2023-09-26 11:43] LABS: Basophils Absolute Auto 0.1 K/mm3 (0.0-0.1); Basophils Percent Auto 0.5 % (0.2-1.2); Eosinophils Absolute Auto 0.1 K/mm3 (0-0.3); Eosinophils Percent Auto 0.6 % (0-4.4); Hematocrit 45.7 % (42.0-52.0); Hemoglobin 15.3 g/dL (14.0-18.0); Immature Granulocyte Absolute 0.15 K/mm3 (0.00-0.031); Immature Granulocyte Percent A 1.1 % (0-0.5); Lymphocytes Absolute Auto 2.57 K/mm3 (0.9-3.2); Lymphocytes Percent Auto 19.3 % (18.3-44.2); Mean Corpuscular HGB Conc 33.5 g/dl (32-36); Mean Corpuscular Hemoglobin 28.8 pg (26-34); Mean Corpuscular Volume 85.9 fl (80-100); Mean Platelet Volume 10.5 fl (7.4-10.4); Monocytes Absolute Auto 0.9 K/mm3 (0.1-0.6); Monocytes Percent Auto 6.8 % (2.6-8.5); Neutrophils Absolute Auto 9.5 K/mm3 (1.3-6.7); Neutrophils Percent Auto 71.7 % (45.5-73.1); Platelet Count Result 348 k/mm3 (150-375); Red Blood Count 5.32 M/mm3 (4.6-6.20); Red Cell Distribution Width 13.2 % (11.5-14.5); White Blood Count 13.3 K/mm3 (4.5-10.0)
[2023-09-26] MEDS: ONDANSETRON INJ 4 MG/2 ML VIAL IV PUSH (11:48)
[2023-09-26] MEDS: FAMOTIDINE 20 MG/2 ML VIAL IV PUSH (11:50)
[2023-09-26 11:52] LABS: Alanine Aminotransferase 161 U/L (6-50); Albumin Level 4.7 g/dL (3.5-5.1); Alkaline Phosphatase 77 U/L (38-126); Anion Gap 13 mmol/L (4-12); Aspartate Amino Transferase 89 U/L (17-59); Bilirubin,Total 0.7 mg/dL (0.2-1.3); Blood Urea Nitrogen 11 mg/dL (9-20); Calcium 9.5 mg/dL (8.4-10.2); Carbon Dioxide 21 mmol/L (22-30); Chloride 105 mmol/L (98-107); Estimated CRCL calculation 110 ml/min; Estimated Glomerular Filt Rate > 60; Glucose 144 mg/dL (65-110); Potassium 3.9 mmol/L (3.4-5.0); Sodium 139 mmol/L (137-145)
[2023-09-26 11:53] LABS: Lipase 66 U/L (23-300)
[2023-09-26 12:00] LABS: Glucose Point of Care 128 mg/dl (65-105)
--- NOTE | 2023-09-26 12:17 | ED.SEIZURE ---
HPI - Seizure General Chief Complaint: Seizure Stated Complaint: Seizures Time Seen by Provider: 09/26/23 11:11 Source: family and EMS Mode of arrival: EMS Limitations: other (patient post-ictal) History of Present Illness HPI Narrative: Patient presents to the emergency department after 2 seizures today at home. Reportedly patient had seizures lasting about 30 seconds. He did not return to baseline in between. Patient is now coming around and more lower upon my evaluation. He is not answering questions or responding yet. He has history of a TBI. Does have seizure disorder. Takes Lincocin might for this. He has been taking his medication as prescribed and has not missed any doses. He did take his dose this morning. Patients mom reports he was complaining of some abdominal pain and did not want to eat much yesterday. Had an episode of vomiting in the ED. Denies fevers. Seizure History: Yes (2018) Related Data Allergies Allergy/AdvReac Type Severity Reaction Status Date / Time No Known Allergies Allergy Verified 09/26/23 10:44 Review of Systems Review of Systems: ROS unobtainable: Yes unobtainable due to mental status PMFSH Past Medical History Medical History ADD (attention deficit disorder) Recurrent seizures TBI (traumatic brain injury) Surgical History Surgical History History of knee surgery RT Hx of craniotomy Family History Family History Unknown Family history unknown The patient is postictal and is not able to answer questions. Mother Hypertension Grandparent Hypertension Diabetes mellitus Social History Social History Smoking status: Never smoker Second hand tobacco smoke exposure: No Alcohol intake: never Substance use: never Substance use type: does not use Do You Feel Safe in your Home?: No Lack of Transportation: No Lack of Food: Never True Current Housing: I Have Housing Concerned About Future Housing: No Difficulty Paying Gas/Electric Bills: No Difficulty Paying for Meds: No Currently Unemployed: No Education: Don't Know Difficulty w/ Childcare or Family Care: No Gender identity (if verbalized by the patient): Male Spiritual care concerns: Yes Agree to blood products: Yes Exam Narrative: GENERAL: Well-appearing, well-nourished, and in no acute distress. HEAD: Normocephalic, atraumatic. EYES: PERRLA and EOMI. ENT: Nares clear, no rhinorrhea or epistaxis. Mucous membranes moist. Oropharynx without tonsillar hypertrophy exudate or other lesions. NECK: Supple. No adenopathy or masses. CHEST: Clear to auscultation. No respiratory distress. No wheezes rales or rhonchi HEART: Regular rate and rhythm. No murmur heard. Normal peripheral pulses. ABDOMEN: Soft, nontender, nondistended, normal active bowel sounds. EXTREMITIES: Normal range of motion. No edema. SKIN: Warm, dry, no rash. NEURO: No focal deficits. Alert and oriented x1. PSYCH: Normal mood and affect Course Course Emergency Course: Patient and family updated on workup and agree with plan of care. Patient is back to baseline Consultations Consultation #1: Spoke with Dr. Lang about patient and workup. Would like to keep patient's current medication dose at this time Date: 09/26/23 Vital Signs Vital signs: Vital Signs Temperature 98.2 F 09/26/23 10:29 Pulse Rate 119 H 09/26/23 10:29 Respiratory Rate 23 H 09/26/23 10:29 Blood Pressure 125/77 09/26/23 10:29 Pulse Oximetry 95 09/26/23 10:29 Oxygen Delivery Room Air 09/26/23 10:29 Temperature 98.2 F 09/26/23 10:29 Pulse Rate 104 H 09/26/23 15:29 Respiratory Rate 15 09/26/23 15:29 Blood Pressure 136/94 H 09/26/23 15:29 Pulse Oximetry 97 09/26/23 15:29 Oxygen
[2023-09-26 14:17] LABS: Appearance Urine Clear (Clear); Bacteria Urine None Seen /hpf; Bilirubin Urine Negative (Negative); Blood Urine Negative (Negative); Color Urine Yellow (Yellow); Glucose Urine UA Negative (Negative); Ketones Urine Negative (Negative); Leukocyte Esterase Ur Negative LEU/UL (Negative); Need Manual Microscopic Reviewed; Nitrate Urine Negative (Negative); Non Pathogenic Casts 0-2; Protein Urine Trace mg/dL (Negative); RBC Urine 0-2 /hpf (0-2); Spermatozoa Urine Present; Squamous Epithelial Cell Urine None Seen /hpf (Few); Urobilinogen Urine 0.2 mg/dL (<2.0); WBC Urine 0-5 /hpf (0-3); pH Urine 5.5 (5.0-9.0)
[2023-09-26 14:24] LABS: Add Urine Microscopic? YES
--- NOTE | 2023-09-26 15:36 | PC.NURSE ---
Phlebotomy called to assist in lab draw
[2023-09-26 16:44] LABS: Anion Gap 12 mmol/L (4-12); Blood Urea Nitrogen 11 mg/dL (9-20); Calcium 9.1 mg/dL (8.4-10.2); Carbon Dioxide 23 mmol/L (22-30); Chloride 105 mmol/L (98-107); Estimated CRCL calculation 110 ml/min; Estimated Glomerular Filt Rate > 60; Glucose 91 mg/dL (65-110); Potassium 3.8 mmol/L (3.4-5.0); Sodium 140 mmol/L (137-145)
== END 2023-09-26 17:16 | disposition home or self-care (01) ==
PROVIDERS: Emergency Provider Physician Assistant; PCP Pediatrics
DX: G40.909 Epilepsy, unspecified, not intractable, without status epilepticus (principal); E86.0 Dehydration; Z87.820 Personal history of traumatic brain injury; K76.0 Fatty (change of) liver, not elsewhere classified
CPT/HCPCS: 36415; 70450; 74177; 80048; 80053; 81001; 82948; 83690; 85025; 86850; 86900; 86901; 96361; 96374; 96375; 99284; J2405; J7030; Q9967

== ENCOUNTER 2023-10-06 20:37 | Emergency (ER) | payer OTHER, SELFPAY ==
--- NOTE | 2023-10-06 20:42 | ECG_ITS ---
Test Date: 2023-10-06 20:50:24 Measurements Intervals [place] Rate: 115 P: 29 [place]: 157 QRS: 30 QRSD: 100 T: 12 QT: 292 QTc: 404 Interpretive Statements SINUS TACHYCARDIA INCOMPLETE RIGHT BUNDLE BRANCH BLOCK ST ELEVATION IN DIFFUSE LEADS, PROBABLY EARLY REPOLARIZATION BASELINE ARTIFACT- I, III, AVL, V4-V6 ABNORMAL ECG Compared to ECG 08/23/2023 12:23:02 NO SIGNIFICANT CHANGE Electronically Signed On 10-07-2023 08:25:52 CDT by Alistair Singer D.O.
[2023-10-06 20:46] VITALS: BP 145/92; PULSE 112; RESP 18; TEMP 37.1; O2SAT 95
[2023-10-06 20:58] VITALS: BP 148/95; PULSE 111; RESP 15; O2SAT 94; O2SAT 97
[2023-10-06 20:59] VITALS: O2SAT 97
[2023-10-06 21:00] VITALS: O2SAT 97
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
[2023-10-06 21:18] LABS: Appearance Urine Clear (Clear); Bacteria Urine None Seen /hpf; Bilirubin Urine Negative (Negative); Blood Urine Negative (Negative); Color Urine Yellow (Yellow); Glucose Urine UA Negative (Negative); Ketones Urine Trace mg/dL (Negative); Leukocyte Esterase Ur Negative LEU/UL (Negative); Need Manual Microscopic Reviewed; Nitrate Urine Negative (Negative); Non Pathogenic Casts 0-2; Protein Urine 2+ mg/dL (Negative); RBC Urine 0-2 /hpf (0-2); Specific Grav Ur 1.022 (1.001-1.035); Spermatozoa Urine Present; Squamous Epithelial Cell Urine None Seen /hpf (Few); WBC Urine 0-5 /hpf (0-3); pH Urine 5.5 (5.0-9.0)
[2023-10-06 21:19] LABS: Add Urine Microscopic? YES
[2023-10-06] MEDS: SODIUM CHLORIDE 0.9% IV 1,000 ML 999 ML IV CONT ×2 (21:20→21:42)
[2023-10-06 21:24] LABS: Basophils Absolute Auto 0.1 K/mm3 (0.0-0.1); Basophils Percent Auto 1.1 % (0.2-1.2); Eosinophils Absolute Auto 0.2 K/mm3 (0-0.3); Eosinophils Percent Auto 2.4 % (0-4.4); Hematocrit 44.1 % (42.0-52.0); Hemoglobin 14.6 g/dL (14.0-18.0); Immature Granulocyte Absolute 0.05 K/mm3 (0.00-0.031); Immature Granulocyte Percent A 0.6 % (0-0.5); Lymphocytes Absolute Auto 3.01 K/mm3 (0.9-3.2); Lymphocytes Percent Auto 35.5 % (18.3-44.2); Mean Corpuscular HGB Conc 33.1 g/dl (32-36); Mean Corpuscular Hemoglobin 28.8 pg (26-34); Monocytes Absolute Auto 0.7 K/mm3 (0.1-0.6); Monocytes Percent Auto 8.4 % (2.6-8.5); Neutrophils Absolute Auto 4.4 K/mm3 (1.3-6.7); Platelet Count Result 320 k/mm3 (150-375); Red Blood Count 5.07 M/mm3 (4.6-6.20); Red Cell Distribution Width 13.2 % (11.5-14.5); White Blood Count 8.5 K/mm3 (4.5-10.0)
[2023-10-06 21:34] LABS: Alanine Aminotransferase 119 U/L (6-50); Albumin Level 4.8 g/dL (3.5-5.1); Alkaline Phosphatase 70 U/L (38-126); Anion Gap 13 mmol/L (4-12); Aspartate Amino Transferase 46 U/L (17-59); Bilirubin,Total 0.5 mg/dL (0.2-1.3); Blood Urea Nitrogen 13 mg/dL (9-20); Calcium 9.2 mg/dL (8.4-10.2); Carbon Dioxide 23 mmol/L (22-30); Chloride 103 mmol/L (98-107); Estimated CRCL calculation 103 ml/min; Estimated Glomerular Filt Rate > 60; Glucose 96 mg/dL (65-110); Potassium 4.2 mmol/L (3.4-5.0); Sodium 139 mmol/L (137-145)
[2023-10-06 21:36] LABS: Prothrombin Time 13.2 Seconds (11.1-14.7)
[2023-10-06 21:37] LABS: Partial Thromboplastin Time 25.4 Seconds (22.3-36.8)
--- NOTE | 2023-10-06 21:59 | PC.NURSE ---
Patient's mother called out and advised that patient needed to have a bowel movement. The patient was then assisted to the bedside commode and patient tolerated movement well.
[2023-10-06] MEDS: LACOSAMIDE (*CRX) 200 MG TABLET PO (22:27)
== END 2023-10-06 22:47 | disposition home or self-care (01) ==
PROVIDERS: Emergency Provider Emergency Medicine; PCP Pediatrics
DX: G40.919 Epilepsy, unspecified, intractable, without status epilepticus (principal); Z87.820 Personal history of traumatic brain injury; K76.0 Fatty (change of) liver, not elsewhere classified; I45.10 Unspecified right bundle-branch block; R00.0 Tachycardia, unspecified
CPT/HCPCS: 36415; 80053; 81001; 85025; 85610; 85730; 93005; 96360; 99284; A9270; J7030

== ENCOUNTER 2023-10-16 10:18 | Emergency (ER) | payer OTHER, SELFPAY ==
[2023-10-16] VITALS (14 sets, daily range): BP systolic 106–125; BP diastolic 56–89; PULSE 83–108; RESP 13–23; TEMP 36.3; O2SAT 96–100
--- NOTE | 2023-10-16 10:56 | ED.SEIZURE ---
HPI - Seizure General Chief Complaint: Seizure Stated Complaint: Seizure Time Seen by Provider: 10/16/23 10:49 History of Present Illness HPI Narrative: Pt presents after having witnessed seizure of unknown duration. Pt has history of TBI and seizure disorder since age 10. Pt takes seizure meds but unsure if any missed doses or adjustments. Seizure History: Yes (2019) Related Data Allergies Allergy/AdvReac Type Severity Reaction Status Date / Time No Known Allergies Allergy Verified 09/26/23 10:44 Review of Systems Review of Systems: All systems reviewed & are unremarkable except as noted in HPI and below PMFSH Past Medical History Medical History ADD (attention deficit disorder) Recurrent seizures TBI (traumatic brain injury) Surgical History Surgical History History of knee surgery RT Hx of craniotomy Family History Family History Unknown Family history unknown The patient is postictal and is not able to answer questions. Mother Hypertension Grandparent Hypertension Diabetes mellitus Social History Social History Smoking status: Never smoker Second hand tobacco smoke exposure: No Alcohol intake: never Substance use: never Substance use type: does not use Do You Feel Safe in your Home?: No Lack of Transportation: No Lack of Food: Never True Current Housing: I Have Housing Concerned About Future Housing: No Difficulty Paying Gas/Electric Bills: No Difficulty Paying for Meds: No Currently Unemployed: No Education: Don't Know Difficulty w/ Childcare or Family Care: No Gender identity (if verbalized by the patient): Male Spiritual care concerns: Yes Agree to blood products: Yes Exam Const: General: healthy appearing Nutritional Appearance: well nourished Orientation/consciousness: patient oriented x3 Limitations: no limitations Eyes: Conjunctivae: conjunctivae normal Pupils: Equal, round and reactive pupils present EOM: EOMs intact bilaterally Resp: Effort & Inspection: normal respiratory effort Auscultation: clear to auscultation bilaterally Cardio: Rate: regular rate Rhythm: regular rhythm GI: GI Palp: Yes Soft to palpation Skin: General skin exam: normal color Wounds: no wounds Neuro: General: patient oriented x3, moves all extremities and no focal motor deficits Cranial nerves: Yes Nystagmus not present Speech: Abnormal speech present (baseline) garbled Extrem: General: normal to inspection and no clubbing, cyanosis or edema Psych: Attitude: cooperative Course Vital Signs Vital signs: Vital Signs Pulse Rate 108 H 10/16/23 10:19 Respiratory Rate 14 10/16/23 10:19 Blood Pressure 125/89 10/16/23 10:19 Pulse Oximetry 96 10/16/23 10:19 Oxygen Delivery Room Air 10/16/23 10:19 Temperature 97.3 F L 10/16/23 13:49 Pulse Rate 83 10/16/23 13:49 Respiratory Rate 16 10/16/23 13:49 Blood Pressure 108/75 10/16/23 13:49 Pulse Oximetry 100 10/16/23 13:49 Oxygen Delivery Room Air 10/16/23 11:39 MDM - Seizure MDM Narrative Medical decision making narrative: pt had apperent seizure a home. minimal hx avail from EMS no family here yet. will check electrolytes and observe. Pt has Hx of TBI and sz disorder and is baseline now. labs look ok. discussed with family will call neurologist Differential Diagnosis Differential diagnosis: Likely generalized seizure Lab Data 10/16/23 11:26 10/16/23 12:15 Labs: Lab Results 10/16/23 10/16/23 Range/Units 11:26 12:15 WBC 7.9 (4.5-10.0) K/mm3 RBC 5.81 (4.6-6.20) M/mm3 Hgb 16.9 (14.0-18.0) g/dL Hct 52.8 H (42.0-52.0) % MCV 90.9 (80-100) fl MCH 29.1 (26-34) pg MCHC 32.0 (32-3
[2023-10-16 11:31] LABS: Basophils Absolute Auto 0.1 K/mm3 (0.0-0.1); Basophils Percent Auto 1.1 % (0.2-1.2); Eosinophils Absolute Auto 0.1 K/mm3 (0-0.3); Hematocrit 52.8 % (42.0-52.0); Hemoglobin 16.9 g/dL (14.0-18.0); Immature Granulocyte Absolute 0.08 K/mm3 (0.00-0.031); Lymphocytes Absolute Auto 1.94 K/mm3 (0.9-3.2); Lymphocytes Percent Auto 24.5 % (18.3-44.2); Mean Corpuscular Hemoglobin 29.1 pg (26-34); Mean Corpuscular Volume 90.9 fl (80-100); Mean Platelet Volume 9.9 fl (7.4-10.4); Monocytes Absolute Auto 0.5 K/mm3 (0.1-0.6); Monocytes Percent Auto 5.9 % (2.6-8.5); Neutrophils Absolute Auto 5.3 K/mm3 (1.3-6.7); Neutrophils Percent Auto 66.5 % (45.5-73.1); Platelet Count Result 286 k/mm3 (150-375); Red Blood Count 5.81 M/mm3 (4.6-6.20); Red Cell Distribution Width 13.2 % (11.5-14.5); White Blood Count 7.9 K/mm3 (4.5-10.0)
[2023-10-16 12:34] LABS: Alanine Aminotransferase 136 U/L (6-50); Albumin Level 4.7 g/dL (3.5-5.1); Alkaline Phosphatase 83 U/L (38-126); Anion Gap 11 mmol/L (4-12); Aspartate Amino Transferase 62 U/L (17-59); Bilirubin,Total 0.8 mg/dL (0.2-1.3); Blood Urea Nitrogen 9 mg/dL (9-20); Calcium 9.2 mg/dL (8.4-10.2); Carbon Dioxide 25 mmol/L (22-30); Chloride 103 mmol/L (98-107); Estimated CRCL calculation 110 ml/min; Estimated Glomerular Filt Rate > 60; Glucose 85 mg/dL (65-110); Potassium 4.2 mmol/L (3.4-5.0); Sodium 139 mmol/L (137-145)
== END 2023-10-16 13:51 | disposition home or self-care (01) ==
PROVIDERS: Emergency Provider Emergency Medicine; PCP Pediatrics
DX: G40.909 Epilepsy, unspecified, not intractable, without status epilepticus (principal); Z87.820 Personal history of traumatic brain injury
CPT/HCPCS: 36415; 80053; 85025; 99283

== ENCOUNTER 2023-10-23 19:48 | Observation (INO) | payer OTHER, SELFPAY ==
[2023-10-23] VITALS (10 sets, daily range): BP systolic 104–156; BP diastolic 60–87; PULSE 101–146; RESP 16–97; TEMP 37.1; O2SAT 18–98
--- NOTE | ~2023-10-23 | US_ITS ---
EXAMINATION: US abdomen limited DATE: 10/24/2023 08:52 INDICATION: Abnormal liver function tests. TECHNIQUE: Multiple grayscale and Doppler ultrasound images of the abdomen were obtained. COMPARISON: CT abdomen and pelvis 09/26/2023 FINDINGS: The visualized portions of the head of the pancreas is normal. There is diffuse hepatic chevy atosis. No liver surface nodularity. There is antegrade flow in main portal vein. The gallbladder is normal in size. No gallstones or gallbladder wall thickening. There is no sonographic Garcia's sign. The common duct is normal and measures 2 mm. IMPRESSION: 1. Diffuse hepatic steatosis. Reviewed, dictated and finalized at location A.
--- NOTE | ~2023-10-23 | XR_ITS ---
EXAMINATION: XR chest 1V portable DATE: 10/23/2023 22:15 INDICATION: Seizure TECHNIQUE: frontal view of the chest was obtained. COMPARISON: Chest radiograph dated 08/13/2023 FINDINGS: Patient is rotated towards the left. Lung volumes are small. No focal airspace opacities, pulmonary e petros, pleural effusion or pneumothorax. Heart size is normal. IMPRESSION: 1. No acute cardiopulmonary disease. Reviewed, dictated and finalized at location A.
--- NOTE | 2023-10-23 19:54 | ED.GENADULT ---
HPI - General Adult General Chief complaint: Seizure Stated complaint: SEIZURE History of Present Illness HPI narrative: This is a 23-year-old male with history of TBI and seizure disorder presenting for a seizure. EMS was called by the patient's roommate after the patient underwent a generalized tonic clonic seizure. Seizure had resolved by time EMS arrived Patient has recently started going through medication changes after developing fatty liver. Since that he has been having recurrent seizures despite being seizure-free for quite some time. He has been seen in our emergency department multiple times. This time the patient is postictal. Related Data Home Medications Medication Instructions Recorded Confirmed lacosamide 200 mg tablet 250 mg PO Q12H 10/24/23 10/24/23 Allergies Allergy/AdvReac Type Severity Reaction Status Date / Time No Known Allergies Allergy Verified 09/26/23 10:44 [facility] Past Medical History Medical History ADD (attention deficit disorder) Recurrent seizures TBI (traumatic brain injury) Surgical History Surgical History History of knee surgery RT Hx of craniotomy Family History Family History Unknown Family history unknown The patient is postictal and is not able to answer questions. Mother Hypertension Grandparent Hypertension Diabetes mellitus Social History Social History Smoking status: Never smoker Second hand tobacco smoke exposure: No Alcohol intake: never Substance use: never Substance use type: does not use Do You Feel Safe in your Home?: No Lack of Transportation: No Lack of Food: Never True Current Housing: I Have Housing Concerned About Future Housing: No Difficulty Paying Gas/Electric Bills: No Difficulty Paying for Meds: No Currently Unemployed: No Education: Decline to Answer Difficulty w/ Childcare or Family Care: No Gender identity (if verbalized by the patient): Male Spiritual care concerns: No Agree to blood products: Yes Exam Narrative: APPEARANCE: No apparent distress. Patient is postictal Head: atraumatic. EYES: EOMI, NOSE: Atraumatic NECK: Trachea midline RESPIRATORY: No increased rate of breathing, clear to auscultation CARDIOVASCULAR: RRR, no peripheral edema ABDOMINAL: Non-distended soft nontender MUSCULOSKELETAl: No obvious deformities NEURO: Alert. Moving 4/4 extremities SKIN:: Warm, dry. Normal color PSYCHIATRIC: Normal affect Course Vital Signs Vital signs: Vital Signs Temperature 98.8 F 10/23/23 19:50 Pulse Rate 133 H 10/23/23 19:50 Respiratory Rate 17 10/23/23 19:50 Blood Pressure 156/84 H 10/23/23 19:50 Pulse Oximetry 92 10/23/23 19:50 Oxygen Delivery Room Air 10/23/23 19:50 Temperature 97.3 F L 10/24/23 06:00 Pulse Rate 90 10/24/23 08:00 Respiratory Rate 17 10/24/23 06:00 Blood Pressure 107/63 10/24/23 06:00 Pulse Oximetry 98 10/24/23 06:00 Oxygen Delivery Room Air 10/23/23 20:41 Oxygen Flow Rate 2 10/23/23 20:06 Medical Decision Making MDM Narrative Medical decision making narrative: -Course: This a 23-year-old male with history of TBI and seizures presenting for another seizure. Patient was recently switched to lacosamide for his seizures and has now had multiple seizures this month. He has been seen in our ED 4 times in the month of September. The family is attempting to see a neurologist in the [place] system but has not been able to make an appointment yet. Here in the ED the patient has been postictal and is recovering but not yet back to baseline. Given his multiple visits to the emergency room and lack of outpatient follow-up patient will be placed in observation to be evaluated by Neurolog
[2023-10-23] MEDS: SODIUM CHLORIDE 0.9% IV 2,000 ML 999 ML IV CONT (20:02)
--- NOTE | 2023-10-23 20:03 | ECG_ITS ---
Test Date: 2023-10-23 20:08:37 Measurements Intervals [place] Rate: 130 P: 44 RI: 166 QRS: 49 QRSD: 96 T: 29 QT: 271 QTc: 399 Interpretive Statements SINUS TACHYCARDIA INCOMPLETE RIGHT BUNDLE BRANCH BLOCK ST ELEVATION IN DIFFUSE LEADS- PROBABLY EARLY REPOLARIZATION BASELINE ARTIFACT- III ABNORMAL ECG Compared to ECG 10/06/2023 20:50:24 HEART RATE HAS INCREASED Electronically Signed On 10-23-2023 20:27:23 CDT by Alistair Singer D.O.
[2023-10-23] MEDS: SODIUM CHLORIDE 0.9% IV 1,000 ML 999 ML IV CONT ×2 (20:04→21:02)
[2023-10-23 20:08] LABS: Hematocrit 49.8 % (42.0-52.0); Hemoglobin 16.3 g/dL (14.0-18.0); Mean Corpuscular HGB Conc 32.7 g/dl (32-36); Mean Corpuscular Hemoglobin 29.2 pg (26-34); Mean Corpuscular Volume 89.1 fl (80-100); Mean Platelet Volume 10.5 fl (7.4-10.4); Platelet Count Result 372 k/mm3 (150-375); Red Blood Count 5.59 M/mm3 (4.6-6.20); Red Cell Distribution Width 13.5 % (11.5-14.5); White Blood Count 26.1 K/mm3 (4.5-10.0)
[2023-10-23 20:32] LABS: Lymphocytes Absolute Manual 4.43 K/mm3 (1.1-4.5); Monocytes Absolute Manual 1.82 K/mm3 (0.1-0.90); Monocytes Percent Manual 7 % (3-9); Neutrophils Percent Manual 76 % (46-73); Platelet Estimate Adequate (Adequate); Schistocytes None Seen; Total Cells Counted 100
[2023-10-23 20:33] LABS: Alanine Aminotransferase 154 U/L (6-50); Albumin Level 5.1 g/dL (3.5-5.1); Alkaline Phosphatase 81 U/L (38-126); Anion Gap 20 mmol/L (4-12); Aspartate Amino Transferase 85 U/L (17-59); Bilirubin,Total 0.7 mg/dL (0.2-1.3); Blood Urea Nitrogen 12 mg/dL (9-20); Calcium 9.2 mg/dL (8.4-10.2); Carbon Dioxide 18 mmol/L (22-30); Chloride 100 mmol/L (98-107); Estimated CRCL calculation 114 ml/min; Estimated Glomerular Filt Rate > 60; Glucose 154 mg/dL (65-110); Potassium 4.2 mmol/L (3.4-5.0); Sodium 138 mmol/L (137-145)
--- NOTE | 2023-10-23 20:41 | PC.NURSE ---
Mother at bedside now and states that they are still in the process of medication change. Mother also states that she has not been able to get into a neurologist until the end of October. Mother states that patient normally returns to normal post seizure quickly, but patient still drowsy. Vitals 125 bmp sinus tachycardia, 23 RR, 99% RA, 118/75.
[2023-10-23] MEDS: levETIRAcetam 1500MG/NACL100ML 1,500 MG/100 ML BAG 400 MG IVPB (22:05)
--- NOTE | 2023-10-23 22:21 | PM.IMHP ---
H&P: HPI History of Present Illness Date/Time: 10/23/23 22:21 Chief Complaint: seizure Narrative: this is a 23-year-old male with past medical history significant for traumatic brain injury, patient started having seizures 5 years ago has been fairly well controlled however recently changed medications has had several episodes of breakthrough seizure. Was brought today due to seizure episode. At the time of my visit patient is still postictal. Most of the history has been obtained from mom who is at bedside and older brother. Preliminary workup here was significant for leukocyte count of 26,000, patient tested negative for influenza type A influenza type B COVID and RSV EXAMINATION: XR chest 1V portable DATE: 10/23/2023 22:15 INDICATION: Seizure TECHNIQUE: frontal view of the chest was obtained. COMPARISON: Chest radiograph dated 08/13/2023 FINDINGS: Patient is rotated towards the left. Lung volumes are small. No focal airspace opacities, pulmonary edema, pleural effusion or pneumothorax. Heart size is normal. IMPRESSION: 1. No acute cardiopulmonary disease. Review of Systems Review of Systems: ROS unobtainable: Yes other ( post ictal) [facility] Past Medical History Medical History ADD (attention deficit disorder) Recurrent seizures TBI (traumatic brain injury) Surgical History Surgical History History of knee surgery RT Hx of craniotomy Family History Family History Unknown Family history unknown The patient is postictal and is not able to answer questions. Mother Hypertension Grandparent Hypertension Diabetes mellitus Social History Social History Smoking status: Never smoker Second hand tobacco smoke exposure: No Alcohol intake: never Substance use: never Substance use type: does not use Do You Feel Safe in your Home?: No Lack of Transportation: No Lack of Food: Never True Current Housing: I Have Housing Concerned About Future Housing: No Difficulty Paying Gas/Electric Bills: No Difficulty Paying for Meds: No Currently Unemployed: No Education: Decline to Answer Difficulty w/ Childcare or Family Care: No Gender identity (if verbalized by the patient): Male Spiritual care concerns: No Agree to blood products: Yes Meds Home Medications and Allergies Home Medications Medication Instructions Recorded Confirmed Type lacosamide 200 mg tablet 250 mg PO Q12H 10/24/23 10/24/23 History Allergies Allergy/AdvReac Type Severity Reaction Status Date / Time No Known Allergies Allergy Verified 09/26/23 10:44 Vital Signs Vital Signs - 24 hr 10/23/23 19:50 10/23/23 19:54 10/23/23 19:54 Temperature 98.8 F Pulse Rate 133 H 146 H Respiratory Rate 17 Blood Pressure 156/84 H Pulse Oximetry 92 97 Oxygen Delivery Room Air Room Air Oxygen Flow Rate 10/23/23 19:55 10/23/23 19:55 10/23/23 19:57 Temperature Pulse Rate 145 H Respiratory Rate 97 H Blood Pressure 156/84 H Pulse Oximetry 97 18 L 97 Oxygen Delivery Room Air Room Air Oxygen Flow Rate 10/23/23 20:06 10/23/23 20:22 10/23/23 20:41 Temperature Pulse Rate 128 H Respiratory Rate 18 Blood Pressure 111/69 Pulse Oximetry 93 93 98 Oxygen Delivery Nasal Cannula Room Air Oxygen Flow Rate 2 10/23/23 21:38 Temperature Pulse Rate 109 H Respiratory Rate 20 Blood Pressure 115/87 Pulse Oximetry 96 Oxygen Delivery Oxygen Flow Rate Exam Narrative: lying in stretcher Const: General: comfortable, no acute distress, well developed and average body habitus Nutritional Appearance: average body habitus Orientation/consciousness: Other orientation findings ( post ictal) HENMT: Head: normal to inspec
--- NOTE | 2023-10-23 22:51 | PC.NURSE ---
Patient's mother does not want nursing staff to use a straight catheter on the patient for urine and would like to wait a little for patient to urinate on their own.
[2023-10-23 23:12] LABS: Influenza A QL RT-PCR Negative (Negative); Influenza B QL RT-PCR Negative (Negative); RSV RNA, RT-PCR Negative (Negative); SARS-CoV-2 RNA PCR Negative (Negative)
--- NOTE | 2023-10-23 23:31 | PC.NURSE ---
Mother states she is okay if we straight catheter the patient for a urine specimen. Notified EDP Dr. Vargas who VRBO a straight catheter once.
[2023-10-23 23:48] LABS: Add Urine Microscopic? YES; Appearance Urine Clear (Clear); Bacteria Urine None Seen /hpf; Bilirubin Urine Negative (Negative); Blood Urine Negative (Negative); Color Urine Yellow (Yellow); Glucose Urine UA 1+ mg/dL (Negative); Ketones Urine Trace mg/dL (Negative); Leukocyte Esterase Ur Negative LEU/UL (Negative); Nitrate Urine Negative (Negative); Non Pathogenic Casts 0-2; Protein Urine 1+ mg/dL (Negative); RBC Urine 0-2 /hpf (0-2); Specific Grav Ur 1.021 (1.001-1.035); Squamous Epithelial Cell Urine None Seen /hpf (Few); Urobilinogen Urine 0.2 mg/dL (<2.0); WBC Urine 0-5 /hpf (0-3); pH Urine 6.5 (5.0-9.0)
[2023-10-24] VITALS (11 sets, daily range): BP systolic 98–126; BP diastolic 63–86; PULSE 84–108; RESP 16–17; TEMP 36.3–36.8; O2SAT 95–98
--- NOTE | 2023-10-24 01:32 | ADMGEN ---
This patient, Dustin Hull, was admitted to [facility] Room 319-01. Patient/family oriented to hospital policies and general routines including ID bracelet, bed and alarms, visiting hours, pain management, procedures, bathroom and other care routines, personal items, smoking policy, room service/diet, and visiting hours. Information on how to activate the Rapid Response Team has been discussed. Patient/Family are encouraged to report perceived risks to care and to ask questions if they do not understand what they are told or what they should do.
[2023-10-24] MEDS: LACOSAMIDE (*CRX) 200 MG TABLET PO ×2 (09:11→20:57)
[2023-10-24] MEDS: LACOSAMIDE (*CRX) 50 MG TABLET PO (09:11)
[2023-10-24 09:57] LABS: Basophils Absolute Auto 0.1 K/mm3 (0.0-0.1); Basophils Percent Auto 0.5 % (0.2-1.2); Eosinophils Absolute Auto 0.1 K/mm3 (0-0.3); Eosinophils Percent Auto 0.5 % (0-4.4); Hematocrit 43.7 % (42.0-52.0); Hemoglobin 13.8 g/dL (14.0-18.0); Immature Granulocyte Absolute 0.07 K/mm3 (0.00-0.031); Immature Granulocyte Percent A 0.5 % (0-0.5); Lymphocytes Absolute Auto 2.97 K/mm3 (0.9-3.2); Lymphocytes Percent Auto 23.2 % (18.3-44.2); Mean Corpuscular HGB Conc 31.6 g/dl (32-36); Mean Corpuscular Hemoglobin 28.6 pg (26-34); Mean Corpuscular Volume 90.7 fl (80-100); Mean Platelet Volume 10.6 fl (7.4-10.4); Monocytes Absolute Auto 0.6 K/mm3 (0.1-0.6); Neutrophils Percent Auto 70.3 % (45.5-73.1); Platelet Count Result 265 k/mm3 (150-375); Red Blood Count 4.82 M/mm3 (4.6-6.20); Red Cell Distribution Width 13.6 % (11.5-14.5); White Blood Count 12.8 K/mm3 (4.5-10.0)
[2023-10-24 10:12] LABS: Alanine Aminotransferase 121 U/L (6-50); Albumin Level 3.9 g/dL (3.5-5.1); Alkaline Phosphatase 63 U/L (38-126); Anion Gap 10 mmol/L (4-12); Aspartate Amino Transferase 49 U/L (17-59); Blood Urea Nitrogen 9 mg/dL (9-20); Calcium 8.5 mg/dL (8.4-10.2); Carbon Dioxide 21 mmol/L (22-30); Chloride 107 mmol/L (98-107); Estimated CRCL calculation 127 ml/min; Estimated Glomerular Filt Rate > 60; Glucose 119 mg/dL (65-110); Potassium 3.6 mmol/L (3.4-5.0); Sodium 138 mmol/L (137-145)
[2023-10-24] MEDS: DIVALPROEX SODIUM DR 250 MG TABEC PO ×2 (13:27→20:57)
--- NOTE | 2023-10-24 13:43 | PM.IMPN ---
Progress Note: A&P Assessment and Plan (1) Breakthrough seizure: Code(s): G40.919 - Epilepsy, unspecified, intractable, without status epilepticus Status: Acute (2) Elevated lactic acid level: Code(s): R79.89 - Other specified abnormal findings of blood chemistry Status: Acute (3) Transaminitis: Code(s): R74.0 - Nonspecific elevation of levels of transaminase and lactic acid dehydrogenase [LDH] Status: Acute (4) TBI (traumatic brain injury): Code(s): S06.9X9A - Unspecified intracranial injury with loss of consciousness of unspecified duration, initial encounter Status: Chronic Plan Acute on chronic epilepsy/HX TBI Patient also frequent episodes CT scans after change to medication 6 months ago Neurology consulted Patient switch back to Depakote 250 b.i.d. Will taper off his lacosamide 200mg BID x 7days Seizure precautions Ativan p.r.n. for seizure activity Infectious process ruled out Transaminitis LFTs trending down Ultrasound showing hepatic steatosis Code status: Full code per patient DVT prophylaxis: SCDs Stress ulcer prophylaxis: Protonix 40 daily PT/OT notes: Ambulatory Disposition: Patient continues admission will transition to medication monitor might seizure-like activity plan is to discharge back home with family. Time Spent With Patient Time with patient: 15 - 25 minutes Subjective Date/time seen: 10/24/23 13:43 Interval history: Admission: This is a 23-year-old male with past medical history significant for traumatic brain injury, patient started having seizures 5 years ago has been fairly well controlled however recently changed medications has had several episodes of breakthrough seizure. Was brought today due to seizure episode. At the time of my visit patient is still postictal. Most of the history has been obtained from mom who is at bedside and older brother. Preliminary workup here was significant for leukocyte count of 26,000, patient tested negative for influenza type A influenza type B COVID and RSV 10/24/2023: Assumed Care Patient alert and oriented with no further seizure activity overnight. Spoke with patient's mom regarding current episodes seizure activity patient has been having multiple seizures for the last 6 months. Patient's neurologist in [place] had switched his medication in on each admission the medication was just increased however patient has continued to seizures the and appears to not be able to need therapeutic range. Jennie the mother of the patient had spoken with patient's neurologist in [place] it was recommended patient be placed back on his previous medication of Depakote 250 b.i.d. with a taper off of lacosamide to 200 mg b.i.d. for 1 week while transitioning. Review of Systems Review of Systems: All systems reviewed & are unremarkable except as noted in HPI and below Exam Narrative: Physical Exam: GENERAL: Alert and oriented x 3. No acute distress. EYES: EOMI. No scleral icterus. PERRLA. HEENT: Moist mucous membranes. LUNGS: Clear to auscultation bilaterally. No accessory muscle use. CARDIOVASCULAR: Regular rate and rhythm. No murmur. No JVD. S1-S2 ABDOMEN: Soft, non tenderness and non-distended. No palpable masses. EXTREMITIES: No edema. Non-tender SKIN: No rashes or lesions. Skin warm, dry. NEUROLOGIC: No focal neurological deficits. CN II-XII grossly intact PSYCHIATRIC: Appropriate mood and affect. Good judgement and insight. No visual or auditory hallucinations. No suicidal or homicidal ideation. Objective Data Vital Signs Vital Signs: Vital Signs - 24 hr 10/23/23 19:50 10/23/23 19:54 10/23/23 19:54 Temperature 98.8 F Pulse Rate 133 H 146 H Respiratory Rate 17 Blood Pressure 156/84 H Pulse Oximetry 92 97 Oxygen Delivery Room Air Room Air Oxygen Flow Rate 10/23/23 19:55 10/23/23 19:55 10/23/23 19:57 Temperature
--- NOTE | 2023-10-24 16:11 | WPDNEURCNPN ---
Assessment and Plan Assessment and plan (1) Breakthrough seizure: Code(s): G40.919 - Epilepsy, unspecified, intractable, without status epilepticus Status: Acute Assessment and Plan: The patient is a seizures have not been fully controlled and he continues to have a few spells every month and has probably we need to manage his or now by increasing the dose of Vimpat to 3 mg twice a day. He has been started on low-dose Depakote since he was on this in the past but I wonder if there was a concern regarding liver enzymes for changing him to Vimpat. Other alternate medications can be considered necessary. 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 CT scan of the brain has shown bilateral is of the encephalomalacia in frontal and temporal lobe. ECG had did not show any abnormalities. Patient does appear to have some degree of static encephalopathy. Intention tremors were noted. Plan I noted the patient had a white cell count of 26,000 upon admission which has now wall and out around 12.6. There does not appear to be any identified source of infection. His seizures were never fully controlled according to his cousin. It appears that his liver enzymes were slightly high and I wonder if that was the reason why he was taken off the Depakote and I would increase the dose of lacosamide 300 mg twice a day. If this does not seem to be sufficient in controlling seizures an alternate medication such as Lamictal may be considered in view of the liver enzyme abnormality however I do not know if that was the reason why he was taken off the medication. He is following up with a neurologist in [place] and probably best to discuss these options with a neurologist over there. In the meanwhile the patient has been started on a low-dose Depakote 250 mg twice a day since the ALT is only thing slightly high other parameters were within normal range. And she had a matter of trying to see whether he can tolerate this medication without any abnormality in the liver enzymes in which case we do have several options to consider. 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 Patient was previously seen by our service in July of 2023 and was a advised to increase the dose of lacosamide. Patient follows with a neurologist in [place] and the dose of this medication has been increased up to 250 mg twice a day over the course of last 2 months. Patient continues to have seizures order off according to his cousin who was present at the time of the evaluation and also told me that he was the caregiver. Apparently the patient has had a traumatic brain injury 15 years or so ago. The cousin also has difficulty describing things himself. Apparent the patient has generalized seizures at the never been fully controlled. Previously was on Depakote. This was switched over to lacosamide by his neurologist. EEG was performed which did not show any abnormality. A CT scan of brain did not show any new findings however area of encephalomalacia were noted in both frontal and temporal areas. He was given additional dose of Keppra 1500 mg up on admission and is still on lacosamide 250 mg twice a day. He has not had any seizures since arrival. He seems fairly alert but have difficulty the details by himself which was obtained from his cousin. The patient denies any headache. No recent fall or febrile illness. Review of Systems Review of Systems: All systems reviewed & are unremarkable except as noted in HPI and below PMFSH Past Medical History Medical History (Reviewed 10/24/23 @ 16:13 by Scott
[2023-10-24] MEDS: IBUPROFEN 600 MG TABLET PO (22:53)
[2023-10-25] VITALS: PULSE 80
[2023-10-25 04:00] VITALS: PULSE 70
[2023-10-25 06:00] VITALS: BP 107/68; PULSE 71; RESP 14; TEMP 36.6; O2SAT 99
[2023-10-25 06:26] LABS: Basophils Absolute Auto 0.1 K/mm3 (0.0-0.1); Eosinophils Absolute Auto 0.2 K/mm3 (0-0.3); Eosinophils Percent Auto 1.8 % (0-4.4); Hematocrit 45.3 % (42.0-52.0); Hemoglobin 14.1 g/dL (14.0-18.0); Immature Granulocyte Percent A 1.1 % (0-0.5); Lymphocytes Absolute Auto 3.79 K/mm3 (0.9-3.2); Lymphocytes Percent Auto 40.7 % (18.3-44.2); Mean Corpuscular HGB Conc 31.1 g/dl (32-36); Mean Corpuscular Hemoglobin 28.1 pg (26-34); Mean Corpuscular Volume 90.2 fl (80-100); Mean Platelet Volume 10.8 fl (7.4-10.4); Monocytes Absolute Auto 0.8 K/mm3 (0.1-0.6); Monocytes Percent Auto 8.1 % (2.6-8.5); Neutrophils Absolute Auto 4.4 K/mm3 (1.3-6.7); Neutrophils Percent Auto 47.3 % (45.5-73.1); Platelet Count Result 296 k/mm3 (150-375); Red Blood Count 5.02 M/mm3 (4.6-6.20); Red Cell Distribution Width 13.5 % (11.5-14.5); White Blood Count 9.3 K/mm3 (4.5-10.0)
[2023-10-25 06:42] LABS: Alanine Aminotransferase 130 U/L (6-50); Albumin Level 4.1 g/dL (3.5-5.1); Alkaline Phosphatase 70 U/L (38-126); Anion Gap 10 mmol/L (4-12); Aspartate Amino Transferase 59 U/L (17-59); Bilirubin,Total 0.5 mg/dL (0.2-1.3); Blood Urea Nitrogen 10 mg/dL (9-20); Carbon Dioxide 25 mmol/L (22-30); Chloride 105 mmol/L (98-107); Estimated CRCL calculation 114 ml/min; Estimated Glomerular Filt Rate > 60; Glucose 81 mg/dL (65-110); Potassium 4.1 mmol/L (3.4-5.0); Sodium 140 mmol/L (137-145)
[2023-10-25 08:18] VITALS: PULSE 83
[2023-10-25] MEDS: DIVALPROEX SODIUM DR 250 MG TABEC PO (08:56)
[2023-10-25] MEDS: LACOSAMIDE (*CRX) 200 MG TABLET PO (08:57)
--- NOTE | 2023-10-25 11:41 | PM.DS ---
DS: Admitting Diagnosis Discharge Date 10/25/2023 Admitting Diagnosis Breakthrough seizure DS: Discharge Diagnosis Discharge Diagnosis (1) Breakthrough seizure: Code(s): G40.919 - Epilepsy, unspecified, intractable, without status epilepticus Status: Acute (2) Elevated lactic acid level: Code(s): R79.89 - Other specified abnormal findings of blood chemistry Status: Acute (3) Transaminitis: Code(s): R74.0 - Nonspecific elevation of levels of transaminase and lactic acid dehydrogenase [LDH] Status: Acute (4) TBI (traumatic brain injury): Code(s): S06.9X9A - Unspecified intracranial injury with loss of consciousness of unspecified duration, initial encounter Status: Chronic Plan Acute on chronic epilepsy/HX TBI Patient also frequent episodes CT scans after change to medication 6 months ago Neurology consulted Patient switch back to Depakote 250 b.i.d. Will taper off his lacosamide 200mg BID x 7days Seizure precautions Ativan p.r.n. for seizure activity Infectious process ruled out Transaminitis LFTs trending down Ultrasound showing hepatic steatosis Code status: Full code per patient DVT prophylaxis: SCDs Stress ulcer prophylaxis: Protonix 40 daily PT/OT notes: Ambulatory Disposition: Patient continues admission will transition to medication monitor might seizure-like activity plan is to discharge back home with family. DS: Summary Hospital Course Reason for hospitalization: Breakthrough Seizure Hospital Course: Admission: This is a 23-year-old male with past medical history significant for traumatic brain injury, patient started having seizures 5 years ago has been fairly well controlled however recently changed medications has had several episodes of breakthrough seizure. Was brought today due to seizure episode. At the time of my visit patient is still postictal. Most of the history has been obtained from mom who is at bedside and older brother. Preliminary workup here was significant for leukocyte count of 26,000, patient tested negative for influenza type A influenza type B COVID and RSV 10/24/2023: Assumed Care Patient alert and oriented with no further seizure activity overnight. Spoke with patient's mom regarding current episodes seizure activity patient has been having multiple seizures for the last 6 months. Patient's neurologist in [place] had switched his medication in on each admission the medication was just increased however patient has continued to seizures the and appears to not be able to need therapeutic range. Jennie the mother of the patient had spoken with patient's neurologist in [place] it was recommended patient be placed back on his previous medication of Depakote 250 b.i.d. with a taper off of lacosamide to 200 mg b.i.d. for 1 week while transitioning. 10/25/2023: DISCHARGED Patient with no further seizures during hospital stay. Mom plans to transition to a [place] neurology group but will follow-up with there current neurologist after this initial medication adjustment. Patient in no acute distress at time of assessment, Labs unremarkable and vitals stable. Patient was discharged home with family. Status at Discharge Functional status at discharge: independent ambulation Overall status at discharge: patient is back to baseline Time Spent with Patient Time attestation: Total time spent providing and/or coordinating discharge services: Time spent: Greater than 30 minutes Exam Narrative: Physical Exam: GENERAL: Alert and oriented x 3. No acute distress. EYES: EOMI. No scleral icterus. PERRLA. HEENT: Moist mucous membranes. LUNGS: Clear to auscultation bilaterally. No accessory muscle use. CARDIOVASCULAR: Regular rate and rhythm. No murmur. No JVD. S1-S2 ABDOMEN: Soft, non tenderness and non-distended. No palpable masses. EXTREMITIES: No edema. Non-tender SKIN: No rashe
[2023-10-25 12:00] VITALS: PULSE 91
== END 2023-10-25 14:30 | disposition home or self-care (01) ==
LOC: ANHED 22:04 → ANH3MEDSUR 10-24 06:57
PROVIDERS: Admitting Provider Internal Medicine; Emergency Provider Emergency Medicine; PCP Pediatrics; Visit Provider Nurse Practitioner Family
DX: G40.919 Epilepsy, unspecified, intractable, without status epilepticus (principal); R79.89 Other specified abnormal findings of blood chemistry; R74.01 Elevation of levels of liver transaminase levels; R74.02 Elevation of levels of lactic acid dehydrogenase [LDH]; Z87.820 Personal history of traumatic brain injury; Z20.822 Contact with and (suspected) exposure to COVID-19
CPT/HCPCS: 36415; 71045; 76705; 80053; 81001; 83735; 85025; 87637; 93005; 96361; 96365; 99285; A9270; G0378; G0379; J1953; J7030